=== PATIENT | female | born 1945 | race Caucasian/White ===

== ENCOUNTER 2017-01-08 17:33 | Inpatient (IN) | payer MEDICARE, OTHER ==
[~2017-01-08] VITALS: Ht 162.6 cm; Wt 98.1 kg
[~2017-01-08 17:33] MED LIST: ACET-868 PO; ANAS1TAB8 PO; ASPI-605 PO; CARB-93 PO; CHOL4PAC2 PO; DICL75TA5 PO; DIPH25CA6 PO; DOCU-270 PO; FLUT16SP16 BNOSTRILS; GABA-534 PO; LEVO150T8 PO; MAGN400O6 PO; METO-295 PO; ONDA4TAB5 PO; RISP0.2515 PO; SIME80TA15 PO; SOLI5TAB PO; VALP250C3 PO
[2017-01-08 19:07] LABS: BASOPHILS # (AUTO) 0.1 /CMM (0.0-0.2); DIFF TOTAL % 100 %; EOSINOPHILS # (AUTO) 0.4 /CMM (0.0-0.7); EOSINOPHILS % (AUTO) 5.6 % (0.0-6.0); HEMATOCRIT 32 % (33-45); HEMOGLOBIN 10.4 g/dL (11.5-14.8); LYMPHOCYTES # (AUTO) 1.5 /CMM (0.8-4.8); LYMPHOCYTES % (AUTO) 23.3 % (20.0-44.0); MEAN CORPUSCULAR HEMOGLOBIN 31 PG (26.0-33.0); MEAN CORPUSCULAR HGB CONC 33 g/dl (31.0-36.0); MEAN CORPUSCULAR VOLUME 95 fL (82-100); MONOCYTES # (AUTO) 0.9 /CMM (0.1-1.30); MONOCYTES % (AUTO) 13.3 % (2.0-12.0); NEUTROPHILS # (AUTO) 3.6 /CMM (1.8-8.9); NEUTROPHILS % (AUTO) 56.8 % (43.0-81.0); PLATELET COUNT (AUTO) 254 /CMM (150-450); RED BLOOD CELL COUNT(AUTO) 3.33 MIL/uL (4.0-5.2); WHITE BLOOD COUNT (AUTO) 6.5 K/uL (4.3-11.0)
[2017-01-08 19:32] LABS: CALCIUM, SERUM 9.1 mg/dL (8.5-10.1); CREATININE 1.2 mg/dL (0.6-1.3)
[2017-01-08 19:35] LABS: INR 1.08 (0.87-1.13); PROTHROMBIN TIME 11.3 SECS (9.5-12.7)
[2017-01-08 19:38] LABS: ALBUMIN 3.1 g/dL (3.4-5.0); BILIRUBIN,DIRECT 0.1 mg/dL (0.0-0.2); BILIRUBIN,TOTAL 0.3 mg/dL (0.2-1.0); INDIRECT BILIRUBIN 0.2 mg/dL (0.0-1.1); TOTAL PROTEIN, SERUM 6.6 g/dL (6.4-8.2)
[2017-01-08 20:14] LABS: KETONES,URINE Negative (NEGATIVE); LEUKOCYTE ESTERASE ,URINE Moderate (NEGATIVE)
[2017-01-08 20:15] LABS: ADD UA MICROSCOPIC YES
[2017-01-08 20:26] LABS: ADD URINE CULTURE YES
[2017-01-08] MEDS ORDERED: IV NS 0.9% 500 ML BAG IV ONE (20:30)
[2017-01-08] MEDS ORDERED: PIPERACILLIN /TAZOBACTAM 3.375 G in IV D5W 50 ML IV ONE (20:30)
[2017-01-08] MEDS ORDERED: IV SET PRIMARY PUMP SET 1 EA INFUS.SET MC ONE (20:42)
[2017-01-08] MEDS ORDERED: PIPERACILLIN /TAZOBACTAM 3.375 G VIAL IV ONE (20:42)
[2017-01-08] MEDS ORDERED: IV NS 0.9% 500 ML IV ONE (20:42)
[2017-01-08] MEDS ORDERED: IV D5W 50 ML IV ONE (20:42)
[2017-01-08] MEDS ORDERED: IV SET PRIMARY 1 EA INFUS.SET MC ONE (20:42)
[2017-01-08 21:30] VITALS: BP 132/79
[2017-01-09] MEDS ORDERED: FENO145T20 PO (00:26)
[2017-01-09] MEDS ORDERED: VALS160T2 PO (00:26)
[2017-01-09] MEDS ORDERED: ALBU8.5H2 INH (00:26)
[2017-01-09] MEDS ORDERED: OMEP40CA37 PO (00:26)
[2017-01-09] MEDS ORDERED: ELUX100T PO (00:26)
[2017-01-09] MEDS ORDERED: MULT1TAB73 PO (00:26)
[2017-01-09] MEDS ORDERED: TEMA15CA PO (00:26)
[2017-01-09] MEDS ORDERED: NAPR500T3 PO (00:29)
[2017-01-09] MEDS ORDERED: DICL100G34 TP (00:47)
[2017-01-09] MEDS ORDERED: AMLO5TAB2 PO (00:47)
[2017-01-09] MEDS ORDERED: ONDANSETRON HCL/PF 4 MG/2 ML VIAL IV PRN (01:00)
[2017-01-09] MEDS ORDERED: MORPHINE SULFATE INJ 2 MG/ML DISP.SYRIN IV PRN (01:00)
[2017-01-09] MEDS ORDERED: ENOXAPARIN SODIUM 40 MG/0.4 ML DISP.SYRIN SQ SCH (01:00)
[2017-01-09] MEDS ORDERED: IV D5W 50 ML IV ONE (04:47)
[2017-01-09] MEDS ORDERED: PIPERACILLIN /TAZOBACTAM 3.375 G VIAL IV ONE (04:47)
[2017-01-09] MEDS ORDERED: IV SET PRIMARY PUMP SET 1 EA INFUS.SET MC ONE (04:53)
[2017-01-09] MEDS ORDERED: SECONDARY IV SET 1 EA INFUS.SET MC ONE (04:53)
[2017-01-09] MEDS ORDERED: IV NS 0.9% 250 ML IV ONE (04:53)
[2017-01-09] MEDS ORDERED: PIPERACILLIN /TAZOBACTAM 3.375 G in IV D5W 50 ML IV SCH (05:00)
[2017-01-09 06:48] LABS: ALBUMIN 2.8 g/dL (3.4-5.0); BILIRUBIN,TOTAL 0.2 mg/dL (0.2-1.0); CALCIUM, SERUM 8.6 mg/dL (8.5-10.1); CREATININE 1.2 mg/dL (0.6-1.3); HEMOGLOBIN 9.8 g/dL (11.5-14.8); RED BLOOD CELL COUNT(AUTO) 3.16 MIL/uL (4.0-5.2); TOTAL PROTEIN, SERUM 6.2 g/dL (6.4-8.2); WHITE BLOOD COUNT (AUTO) 6.1 K/uL (4.3-11.0)
[2017-01-09 06:49] LABS: BASOPHILS % (AUTO) 0.2 % (0.0-2.0); DIFF TOTAL % 100 %; EOSINOPHILS # (AUTO) 0.4 /CMM (0.0-0.7); EOSINOPHILS % (AUTO) 6.7 % (0.0-6.0); HEMATOCRIT 30 % (33-45); LYMPHOCYTES # (AUTO) 1.3 /CMM (0.8-4.8); LYMPHOCYTES % (AUTO) 21.3 % (20.0-44.0); MEAN CORPUSCULAR HEMOGLOBIN 31 PG (26.0-33.0); MEAN CORPUSCULAR HGB CONC 33 g/dl (31.0-36.0); MEAN CORPUSCULAR VOLUME 95 fL (82-100); MONOCYTES # (AUTO) 0.8 /CMM (0.1-1.30); MONOCYTES % (AUTO) 12.5 % (2.0-12.0); NEUTROPHILS # (AUTO) 3.6 /CMM (1.8-8.9); NEUTROPHILS % (AUTO) 59.3 % (43.0-81.0); PLATELET COUNT (AUTO) 257 /CMM (150-450)
[2017-01-09 06:50] LABS: THYROID STIMULATING HORMONE 2.372 uIU/mL (0.358-3.74)
[2017-01-09 08:00] VITALS: BP 126/87
[2017-01-09] MEDS: ENOXAPARIN SODIUM 40 MG/0.4 ML DISP.SYRIN SQ SCH (08:55)
[2017-01-09] MEDS: ANASTROZOLE 1 MG TABLET PO SCH (13:00)
[2017-01-09] MEDS ORDERED: ALBUTEROL SULFATE 8 GM HFA.AER.AD IH PRN (13:00)
[2017-01-09] MEDS ORDERED: CHOLESTYRAMINE/ASPARTAME 4 G/PKT PACKET PO SCH (13:00)
[2017-01-09] MEDS ORDERED: ACETAMINOPHEN 325 MG TABLET PO PRN (13:00)
[2017-01-09] MEDS ORDERED: GABAPENTIN 300 MG CAPSULE PO SCH (13:00)
[2017-01-09] MEDS ORDERED: DOCUSATE SODIUM 100 MG CAPSULE PO PRN (13:00)
[2017-01-09] MEDS ORDERED: ONDANSETRON 4 MG TAB.RAPDIS PO PRN (13:00)
[2017-01-09] MEDS: CARBIDOPA/LEVODOPA 25/100 MG 1 UDTAB PO SCH ×2 (13:03→17:15)
[2017-01-09] MEDS: GABAPENTIN 400 MG CAPSULE PO SCH ×2 (13:03→17:15)
[2017-01-09] MEDS: CHOLESTYRAMINE/ASPARTAME 4 G/PKT PACKET PO SCH ×2 (13:03→21:34)
[2017-01-09] MEDS: DIVALPROEX SODIUM 500 MG TABLET.DR PO SCH ×2 (13:03→21:35)
[2017-01-09] MEDS: VALSARTAN 80 MG TABLET PO SCH (13:04)
[2017-01-09] MEDS: AMLODIPINE BESYLATE 5 MG TABLET PO SCH (13:05)
[2017-01-09] MEDS: PIPERACILLIN /TAZOBACTAM 2.25 G in IV D5W 50 ML IV SCH ×2 (13:07→17:14)
[2017-01-09] MEDS: NAPROXEN 250 MG TABLET PO PRN (14:32)
[2017-01-09] MEDS: FLUTICASONE PROPIONATE 16 GM BOTTLE NS SCH (14:56)
[2017-01-09] MEDS ORDERED: GUAIFENESIN/CODEINE 10 ML UDC PO PRN (15:00)
[2017-01-09] MEDS ORDERED: TRAMADOL HCL 50 MG TABLET PO PRN (15:00)
[2017-01-09] MEDS ORDERED: HYDROCODONE/APAP 5/325MG 1 EACH TABLET PO PRN (15:00)
[2017-01-09 16:00] VITALS: BP 132/84
[2017-01-09] MEDS ORDERED: VALTAREN GEL TP SCH (17:00)
[2017-01-09] MEDS ORDERED: DICLOFENAC SODIUM 25 MG TABLET.DR PO SCH (17:00)
[2017-01-09] MEDS: LACTOBACILLUS RHAMNOSUS GG 1 EACH CAP.SPRINK PO SCH (17:15)
[2017-01-09 18:00] VITALS: BP 132/84
[2017-01-09 20:00] VITALS: BP 121/70
[2017-01-09] MEDS ORDERED: TEMAZEPAM 15 MG CAPSULE PO PRN (21:00)
[2017-01-09] MEDS ORDERED: risperiDONE 0.25 MG TABLET PO SCH (22:00)
[2017-01-10 00:03] VITALS: BP 121/70
[2017-01-10] MEDS: PIPERACILLIN /TAZOBACTAM 2.25 G in IV D5W 50 ML IV SCH ×5 (00:17→23:15)
[2017-01-10] MEDS: CHOLESTYRAMINE/ASPARTAME 4 G/PKT PACKET PO SCH ×3 (05:00→21:13)
[2017-01-10 06:58] LABS: BASOPHILS % (AUTO) 0.4 % (0.0-2.0); DIFF TOTAL % 100 %; EOSINOPHILS # (AUTO) 0.5 /CMM (0.0-0.7); HEMATOCRIT 30 % (33-45); HEMOGLOBIN 9.9 g/dL (11.5-14.8); LYMPHOCYTES # (AUTO) 1.6 /CMM (0.8-4.8); LYMPHOCYTES % (AUTO) 32.1 % (20.0-44.0); MEAN CORPUSCULAR HEMOGLOBIN 32 PG (26.0-33.0); MEAN CORPUSCULAR HGB CONC 33 g/dl (31.0-36.0); MEAN CORPUSCULAR VOLUME 95 fL (82-100); MONOCYTES # (AUTO) 0.8 /CMM (0.1-1.30); MONOCYTES % (AUTO) 17.2 % (2.0-12.0); NEUTROPHILS % (AUTO) 40.3 % (43.0-81.0); PLATELET COUNT (AUTO) 248 /CMM (150-450); RED BLOOD CELL COUNT(AUTO) 3.15 MIL/uL (4.0-5.2); WHITE BLOOD COUNT (AUTO) 4.9 K/uL (4.3-11.0)
[2017-01-10 07:16] LABS: CALCIUM, SERUM 8.4 mg/dL (8.5-10.1); CREATININE 1.2 mg/dL (0.6-1.3)
[2017-01-10 08:00] VITALS: BP 136/77
[2017-01-10] MEDS: LACTOBACILLUS RHAMNOSUS GG 1 EACH CAP.SPRINK PO SCH ×2 (08:35→16:52)
[2017-01-10] MEDS: LEVOTHYROXINE SODIUM 75 MCG TABLET PO SCH (08:35)
[2017-01-10] MEDS: CARBIDOPA/LEVODOPA 25/100 MG 1 UDTAB PO SCH ×3 (08:35→16:52)
[2017-01-10] MEDS: PANTOPRAZOLE 40 MG TABLET.DR PO SCH (08:35)
[2017-01-10] MEDS: MULTIVITAMINS,THERAPEUTIC 1 UDTAB TABLET PO SCH (08:35)
[2017-01-10] MEDS: GABAPENTIN 400 MG CAPSULE PO SCH ×3 (08:35→16:52)
[2017-01-10] MEDS: DIVALPROEX SODIUM 500 MG TABLET.DR PO SCH ×2 (08:35→21:13)
[2017-01-10] MEDS: VALSARTAN 80 MG TABLET PO SCH (08:36)
[2017-01-10] MEDS: AMLODIPINE BESYLATE 5 MG TABLET PO SCH (08:36)
[2017-01-10] MEDS: ANASTROZOLE 1 MG TABLET PO SCH (08:36)
[2017-01-10] MEDS: ENOXAPARIN SODIUM 40 MG/0.4 ML DISP.SYRIN SQ SCH (08:37)
[2017-01-10] MEDS: FLUTICASONE PROPIONATE 16 GM BOTTLE NS SCH (08:37)
[2017-01-10] MEDS: FENOFIBRATE NANOCRYS (145 MG) 145 MG TABLET PO SCH (08:37)
[2017-01-10] MEDS ORDERED: ALBUTEROL FS 2.5 MG/0.5 ML VIAL.NEB NEB PRN (09:30)
[2017-01-10 09:31] LABS: EOSINOPHILS % (MANUAL) 3 % (0-4); LYMPHOCYTES % (MANUAL) 32 % (16-48)
[2017-01-10 09:32] LABS: PLATELET ESTIMATE ADEQUATE
[2017-01-10] MEDS: ALBUTEROL FS 2.5 MG/0.5 ML VIAL.NEB NEB SCH ×3 (10:25→20:46)
[2017-01-10] MEDS: IPRATROPIUM NEB FS 0.5 MG/2.5 ML AMPUL.NEB NEB SCH ×3 (10:25→20:46)
[2017-01-10] MEDS: BACLOFEN (10 MG) 10 MG TABLET PO SCH ×3 (10:28→16:52)
[2017-01-10 16:00] VITALS: BP 109/74
[2017-01-10 18:00] VITALS: BP 109/74
[2017-01-10 20:00] VITALS: BP 109/69
[2017-01-10] MEDS: risperiDONE 1 MG TABLET PO SCH (21:13)
[2017-01-11] MEDS: IPRATROPIUM NEB FS 0.5 MG/2.5 ML AMPUL.NEB NEB PRN (02:22)
[2017-01-11] MEDS: ALBUTEROL FS 2.5 MG/0.5 ML VIAL.NEB NEB SCH ×4 (02:23→19:30)
[2017-01-11] MEDS: PIPERACILLIN /TAZOBACTAM 2.25 G in IV D5W 50 ML IV SCH (05:22)
[2017-01-11] MEDS: CHOLESTYRAMINE/ASPARTAME 4 G/PKT PACKET PO SCH ×3 (05:22→21:29)
[2017-01-11] MEDS: IPRATROPIUM NEB FS 0.5 MG/2.5 ML AMPUL.NEB NEB SCH ×3 (07:22→19:30)
[2017-01-11 08:00] VITALS: BP 125/88
[2017-01-11] MEDS: FLUTICASONE PROPIONATE 16 GM BOTTLE NS SCH (08:05)
[2017-01-11] MEDS: BACLOFEN (10 MG) 10 MG TABLET PO SCH ×3 (08:05→17:10)
[2017-01-11] MEDS: LEVOTHYROXINE SODIUM 75 MCG TABLET PO SCH (08:05)
[2017-01-11] MEDS: ANASTROZOLE 1 MG TABLET PO SCH (08:05)
[2017-01-11] MEDS: LACTOBACILLUS RHAMNOSUS GG 1 EACH CAP.SPRINK PO SCH ×2 (08:06→17:10)
[2017-01-11] MEDS: VALSARTAN 80 MG TABLET PO SCH (08:07)
[2017-01-11] MEDS: MULTIVITAMINS,THERAPEUTIC 1 UDTAB TABLET PO SCH (08:07)
[2017-01-11] MEDS: FENOFIBRATE NANOCRYS (145 MG) 145 MG TABLET PO SCH (08:07)
[2017-01-11] MEDS: GABAPENTIN 400 MG CAPSULE PO SCH ×3 (08:07→17:10)
[2017-01-11] MEDS: PANTOPRAZOLE 40 MG TABLET.DR PO SCH (08:08)
[2017-01-11] MEDS: AMLODIPINE BESYLATE 5 MG TABLET PO SCH (08:08)
[2017-01-11] MEDS: CARBIDOPA/LEVODOPA 25/100 MG 1 UDTAB PO SCH ×3 (08:08→17:10)
[2017-01-11] MEDS: DIVALPROEX SODIUM 500 MG TABLET.DR PO SCH ×2 (08:08→21:29)
[2017-01-11] MEDS: ENOXAPARIN SODIUM 40 MG/0.4 ML DISP.SYRIN SQ SCH (08:12)
[2017-01-11] MEDS ORDERED: TOBRAMYCIN 80 MG in IV D5W 50 ML IV SCH (10:00)
[2017-01-11] MEDS: FLUCONAZOLE (100 MG) 100 MG TABLET PO SCH (11:22)
[2017-01-11] MEDS ORDERED: FEE PK DOSING 1 MIN EA MC ONE (11:39)
[2017-01-11] MEDS ORDERED: SECONDARY IV SET 1 EA INFUS.SET MC ONE (11:40)
[2017-01-11] MEDS: TOBRAMYCIN 100 MG in IV D5W 50 ML IV SCH (11:51)
[2017-01-11 16:00] VITALS: BP 109/67
[2017-01-11 20:00] VITALS: BP 112/68
[2017-01-11] MEDS: risperiDONE 1 MG TABLET PO SCH (21:29)
[2017-01-12] MEDS: ALBUTEROL FS 2.5 MG/0.5 ML VIAL.NEB NEB SCH ×4 (01:20→19:13)
[2017-01-12] MEDS: CHOLESTYRAMINE/ASPARTAME 4 G/PKT PACKET PO SCH ×3 (04:57→21:27)
[2017-01-12 07:08] LABS: BASOPHILS % (AUTO) 0.4 % (0.0-2.0); DIFF TOTAL % 100 %; EOSINOPHILS # (AUTO) 0.3 /CMM (0.0-0.7); EOSINOPHILS % (AUTO) 6.2 % (0.0-6.0); HEMATOCRIT 32 % (33-45); HEMOGLOBIN 10.7 g/dL (11.5-14.8); LYMPHOCYTES # (AUTO) 1.3 /CMM (0.8-4.8); LYMPHOCYTES % (AUTO) 26.8 % (20.0-44.0); MEAN CORPUSCULAR HEMOGLOBIN 31 PG (26.0-33.0); MEAN CORPUSCULAR HGB CONC 33 g/dl (31.0-36.0); MEAN CORPUSCULAR VOLUME 95 fL (82-100); MONOCYTES # (AUTO) 0.7 /CMM (0.1-1.30); MONOCYTES % (AUTO) 14.8 % (2.0-12.0); NEUTROPHILS # (AUTO) 2.6 /CMM (1.8-8.9); NEUTROPHILS % (AUTO) 51.8 % (43.0-81.0); PLATELET COUNT (AUTO) 258 /CMM (150-450); RED BLOOD CELL COUNT(AUTO) 3.43 MIL/uL (4.0-5.2); WHITE BLOOD COUNT (AUTO) 4.9 K/uL (4.3-11.0)
[2017-01-12] MEDS: IPRATROPIUM NEB FS 0.5 MG/2.5 ML AMPUL.NEB NEB SCH ×3 (07:34→19:13)
[2017-01-12 07:53] LABS: CALCIUM, SERUM 8.8 mg/dL (8.5-10.1); CREATININE 1.2 mg/dL (0.6-1.3); PHOSPHORUS 3.9 mg/dL (2.5-4.9); POTASSIUM 4.5 mmol/L (3.5-5.1)
[2017-01-12 08:00] VITALS: BP 137/72
[2017-01-12] MEDS: FENOFIBRATE NANOCRYS (145 MG) 145 MG TABLET PO SCH (08:05)
[2017-01-12] MEDS: BACLOFEN (10 MG) 10 MG TABLET PO SCH ×3 (08:05→17:10)
[2017-01-12] MEDS: LACTOBACILLUS RHAMNOSUS GG 1 EACH CAP.SPRINK PO SCH ×2 (08:05→17:10)
[2017-01-12] MEDS: MULTIVITAMINS,THERAPEUTIC 1 UDTAB TABLET PO SCH (08:05)
[2017-01-12] MEDS: LEVOTHYROXINE SODIUM 75 MCG TABLET PO SCH (08:06)
[2017-01-12] MEDS: DIVALPROEX SODIUM 500 MG TABLET.DR PO SCH ×2 (08:08→21:27)
[2017-01-12] MEDS: PANTOPRAZOLE 40 MG TABLET.DR PO SCH (08:08)
[2017-01-12] MEDS: VALSARTAN 80 MG TABLET PO SCH (08:09)
[2017-01-12] MEDS: FLUCONAZOLE (100 MG) 100 MG TABLET PO SCH (08:09)
[2017-01-12] MEDS: AMLODIPINE BESYLATE 5 MG TABLET PO SCH (08:09)
[2017-01-12] MEDS: CARBIDOPA/LEVODOPA 25/100 MG 1 UDTAB PO SCH ×4 (08:09→21:27)
[2017-01-12] MEDS: ANASTROZOLE 1 MG TABLET PO SCH (08:10)
[2017-01-12] MEDS: FLUTICASONE PROPIONATE 16 GM BOTTLE NS SCH (08:13)
[2017-01-12] MEDS: GABAPENTIN 400 MG CAPSULE PO SCH ×3 (08:14→17:10)
[2017-01-12] MEDS: ENOXAPARIN SODIUM 40 MG/0.4 ML DISP.SYRIN SQ SCH (08:18)
[2017-01-12] MEDS: TOBRAMYCIN 100 MG in IV D5W 50 ML IV SCH (12:34)
[2017-01-12] MEDS: Z GUARD REMEDY 2 OZ OINT TP SCH (12:34)
[2017-01-12] MEDS ORDERED: SECONDARY IV SET 1 EA INFUS.SET MC ONE (14:58)
[2017-01-12] MEDS: Magnesium 1GM/D5W 100ML PREMIX 100 ML IV SCH ×2 (15:36→17:04)
[2017-01-12 16:00] VITALS: BP 108/60
[2017-01-12 20:28] VITALS: BP 125/67
[2017-01-12] MEDS: risperiDONE 1 MG TABLET PO SCH (21:27)
[2017-01-13] MEDS: ALBUTEROL FS 2.5 MG/0.5 ML VIAL.NEB NEB SCH ×4 (01:04→19:52)
[2017-01-13] MEDS: CHOLESTYRAMINE/ASPARTAME 4 G/PKT PACKET PO SCH ×3 (05:27→21:46)
[2017-01-13 06:53] LABS: BASOPHILS % (AUTO) 0.3 % (0.0-2.0); DIFF TOTAL % 100 %; EOSINOPHILS # (AUTO) 0.2 /CMM (0.0-0.7); EOSINOPHILS % (AUTO) 3.9 % (0.0-6.0); HEMATOCRIT 33 % (33-45); LYMPHOCYTES # (AUTO) 1.6 /CMM (0.8-4.8); LYMPHOCYTES % (AUTO) 26.3 % (20.0-44.0); MEAN CORPUSCULAR HEMOGLOBIN 31 PG (26.0-33.0); MEAN CORPUSCULAR HGB CONC 33 g/dl (31.0-36.0); MEAN CORPUSCULAR VOLUME 94 fL (82-100); MONOCYTES # (AUTO) 0.8 /CMM (0.1-1.30); NEUTROPHILS # (AUTO) 3.4 /CMM (1.8-8.9); NEUTROPHILS % (AUTO) 55.5 % (43.0-81.0); PLATELET COUNT (AUTO) 267 /CMM (150-450); WHITE BLOOD COUNT (AUTO) 6.1 K/uL (4.3-11.0)
[2017-01-13 07:15] LABS: CREATININE 1.4 mg/dL (0.6-1.3); PHOSPHORUS 4.8 mg/dL (2.5-4.9); POTASSIUM 5.2 mmol/L (3.5-5.1)
[2017-01-13 08:00] VITALS: BP 131/79
[2017-01-13] MEDS: IPRATROPIUM NEB FS 0.5 MG/2.5 ML AMPUL.NEB NEB SCH ×3 (08:22→19:52)
[2017-01-13] MEDS: FLUCONAZOLE (100 MG) 100 MG TABLET PO SCH (09:31)
[2017-01-13] MEDS: PANTOPRAZOLE 40 MG TABLET.DR PO SCH (09:33)
[2017-01-13] MEDS: LEVOTHYROXINE SODIUM 75 MCG TABLET PO SCH (09:33)
[2017-01-13] MEDS: LACTOBACILLUS RHAMNOSUS GG 1 EACH CAP.SPRINK PO SCH ×2 (09:34→17:19)
[2017-01-13] MEDS: GABAPENTIN 400 MG CAPSULE PO SCH ×3 (09:34→17:18)
[2017-01-13] MEDS: MULTIVITAMINS,THERAPEUTIC 1 UDTAB TABLET PO SCH (09:34)
[2017-01-13] MEDS: BACLOFEN (10 MG) 10 MG TABLET PO SCH ×3 (09:34→17:18)
[2017-01-13] MEDS: FENOFIBRATE NANOCRYS (145 MG) 145 MG TABLET PO SCH (09:34)
[2017-01-13] MEDS: DIVALPROEX SODIUM 500 MG TABLET.DR PO SCH ×2 (09:35→21:47)
[2017-01-13] MEDS: AMLODIPINE BESYLATE 5 MG TABLET PO SCH (09:35)
[2017-01-13] MEDS: CARBIDOPA/LEVODOPA 25/100 MG 1 UDTAB PO SCH ×4 (09:38→21:46)
[2017-01-13] MEDS: FLUTICASONE PROPIONATE 16 GM BOTTLE NS SCH (09:38)
[2017-01-13] MEDS: VALSARTAN 80 MG TABLET PO SCH (09:38)
[2017-01-13] MEDS: ANASTROZOLE 1 MG TABLET PO SCH (09:38)
[2017-01-13] MEDS: ENOXAPARIN SODIUM 40 MG/0.4 ML DISP.SYRIN SQ SCH (09:41)
[2017-01-13] MEDS: Z GUARD REMEDY 2 OZ OINT TP SCH (09:45)
[2017-01-13] MEDS: TOBRAMYCIN 100 MG in IV D5W 50 ML IV SCH (12:14)
[2017-01-13 16:00] VITALS: BP 139/63
[2017-01-13] MEDS ORDERED: IV NS 0.9% 50 ML IV SCH (19:00)
[2017-01-13 20:00] VITALS: BP 131/70
[2017-01-13] MEDS ORDERED: SECONDARY IV SET 1 EA INFUS.SET MC ONE (20:28)
[2017-01-13] MEDS ORDERED: IV NS 0.9% 1,000 ML ONE (20:29)
[2017-01-13] MEDS: CEFEPIME 1 GM in IV D5W 50 ML IV SCH (20:32)
[2017-01-13] MEDS: IV NS 0.9% 1,000 ML IV PRN (20:32)
[2017-01-13 22:00] VITALS: BP 131/70
[2017-01-14] MEDS: CHOLESTYRAMINE/ASPARTAME 4 G/PKT PACKET PO SCH ×4 (05:02→21:55)
[2017-01-14 07:22] LABS: CALCIUM, SERUM 9.2 mg/dL (8.5-10.1); CREATININE 1.3 mg/dL (0.6-1.3)
[2017-01-14 07:32] LABS: BASOPHILS % (AUTO) 0.3 % (0.0-2.0); DIFF TOTAL % 100 %; EOSINOPHILS # (AUTO) 0.3 /CMM (0.0-0.7); EOSINOPHILS % (AUTO) 4.7 % (0.0-6.0); HEMATOCRIT 34 % (33-45); LYMPHOCYTES # (AUTO) 1.3 /CMM (0.8-4.8); LYMPHOCYTES % (AUTO) 22.3 % (20.0-44.0); MEAN CORPUSCULAR HEMOGLOBIN 31 PG (26.0-33.0); MEAN CORPUSCULAR HGB CONC 33 g/dl (31.0-36.0); MEAN CORPUSCULAR VOLUME 95 fL (82-100); MONOCYTES # (AUTO) 0.8 /CMM (0.1-1.30); MONOCYTES % (AUTO) 12.7 % (2.0-12.0); NEUTROPHILS # (AUTO) 3.6 /CMM (1.8-8.9); PLATELET COUNT (AUTO) 255 /CMM (150-450); RED BLOOD CELL COUNT(AUTO) 3.53 MIL/uL (4.0-5.2)
[2017-01-14] MEDS: ALBUTEROL FS 2.5 MG/0.5 ML VIAL.NEB NEB SCH ×3 (07:50→19:30)
[2017-01-14] MEDS: IPRATROPIUM NEB FS 0.5 MG/2.5 ML AMPUL.NEB NEB SCH ×3 (07:50→19:30)
[2017-01-14 07:55] LABS: ADD UA MICROSCOPIC NO; KETONES,URINE NEGATIVE (NEGATIVE); LEUKOCYTE ESTERASE ,URINE NEGATIVE (NEGATIVE)
[2017-01-14 08:00] VITALS: BP 139/82
[2017-01-14] MEDS: FENOFIBRATE NANOCRYS (145 MG) 145 MG TABLET PO SCH (08:57)
[2017-01-14] MEDS: PANTOPRAZOLE 40 MG TABLET.DR PO SCH (08:58)
[2017-01-14] MEDS: MULTIVITAMINS,THERAPEUTIC 1 UDTAB TABLET PO SCH (08:58)
[2017-01-14] MEDS: LEVOTHYROXINE SODIUM 75 MCG TABLET PO SCH (08:58)
[2017-01-14] MEDS: LACTOBACILLUS RHAMNOSUS GG 1 EACH CAP.SPRINK PO SCH ×2 (08:58→17:07)
[2017-01-14] MEDS: GABAPENTIN 400 MG CAPSULE PO SCH ×3 (08:58→17:07)
[2017-01-14] MEDS: DIVALPROEX SODIUM 500 MG TABLET.DR PO SCH ×3 (08:59→21:55)
[2017-01-14] MEDS: AMLODIPINE BESYLATE 5 MG TABLET PO SCH (08:59)
[2017-01-14] MEDS: NAPROXEN 250 MG TABLET PO PRN (08:59)
[2017-01-14] MEDS: ANASTROZOLE 1 MG TABLET PO SCH (08:59)
[2017-01-14] MEDS: FLUCONAZOLE (100 MG) 100 MG TABLET PO SCH (09:00)
[2017-01-14] MEDS: CARBIDOPA/LEVODOPA 25/100 MG 1 UDTAB PO SCH ×5 (09:00→21:55)
[2017-01-14] MEDS: BACLOFEN (10 MG) 10 MG TABLET PO SCH ×3 (09:00→17:07)
[2017-01-14] MEDS: VALSARTAN 80 MG TABLET PO SCH (09:00)
[2017-01-14] MEDS: FLUTICASONE PROPIONATE 16 GM BOTTLE NS SCH (09:01)
[2017-01-14] MEDS: Z GUARD REMEDY 2 OZ OINT TP SCH (09:01)
[2017-01-14] MEDS: ENOXAPARIN SODIUM 40 MG/0.4 ML DISP.SYRIN SQ SCH (09:02)
[2017-01-14] MEDS: TOBRAMYCIN 100 MG in IV D5W 50 ML IV SCH (12:14)
[2017-01-14] MEDS: IV NS 0.9% 1,000 ML IV PRN (12:27)
[2017-01-14 16:00] VITALS: BP 108/69
[2017-01-14 20:09] VITALS: BP 107/66
[2017-01-14] MEDS: CEFEPIME 1 GM in IV D5W 50 ML IV SCH (20:15)
[2017-01-14 22:00] VITALS: BP 107/66
[2017-01-15] MEDS: ALBUTEROL FS 2.5 MG/0.5 ML VIAL.NEB NEB SCH ×4 (02:16→20:12)
[2017-01-15] MEDS: IPRATROPIUM NEB FS 0.5 MG/2.5 ML AMPUL.NEB NEB PRN (02:25)
[2017-01-15] MEDS: IV NS 0.9% 1,000 ML IV PRN (04:01)
[2017-01-15] MEDS: CHOLESTYRAMINE/ASPARTAME 4 G/PKT PACKET PO SCH ×3 (04:31→22:15)
[2017-01-15 06:44] LABS: CALCIUM, SERUM 9.2 mg/dL (8.5-10.1); CREATININE 1.4 mg/dL (0.6-1.3); POTASSIUM 4.9 mmol/L (3.5-5.1)
[2017-01-15 06:45] LABS: BASOPHILS % (AUTO) 0.3 % (0.0-2.0); DIFF TOTAL % 100 %; EOSINOPHILS # (AUTO) 0.4 /CMM (0.0-0.7); EOSINOPHILS % (AUTO) 6.3 % (0.0-6.0); HEMATOCRIT 33 % (33-45); HEMOGLOBIN 10.8 g/dL (11.5-14.8); LYMPHOCYTES # (AUTO) 1.4 /CMM (0.8-4.8); LYMPHOCYTES % (AUTO) 23.7 % (20.0-44.0); MEAN CORPUSCULAR HEMOGLOBIN 31 PG (26.0-33.0); MEAN CORPUSCULAR HGB CONC 33 g/dl (31.0-36.0); MEAN CORPUSCULAR VOLUME 96 fL (82-100); MONOCYTES # (AUTO) 0.7 /CMM (0.1-1.30); MONOCYTES % (AUTO) 11.2 % (2.0-12.0); NEUTROPHILS # (AUTO) 3.5 /CMM (1.8-8.9); NEUTROPHILS % (AUTO) 58.5 % (43.0-81.0); PLATELET COUNT (AUTO) 234 /CMM (150-450); RED BLOOD CELL COUNT(AUTO) 3.45 MIL/uL (4.0-5.2)
[2017-01-15 08:00] VITALS: BP 136/72
[2017-01-15] MEDS: VALSARTAN 80 MG TABLET PO SCH (08:29)
[2017-01-15] MEDS: ANASTROZOLE 1 MG TABLET PO SCH (08:29)
[2017-01-15] MEDS: LEVOTHYROXINE SODIUM 75 MCG TABLET PO SCH (08:29)
[2017-01-15] MEDS: BACLOFEN (10 MG) 10 MG TABLET PO SCH ×3 (08:29→16:11)
[2017-01-15] MEDS: MULTIVITAMINS,THERAPEUTIC 1 UDTAB TABLET PO SCH (08:29)
[2017-01-15] MEDS: FLUCONAZOLE (100 MG) 100 MG TABLET PO SCH (08:29)
[2017-01-15] MEDS: PANTOPRAZOLE 40 MG TABLET.DR PO SCH (08:29)
[2017-01-15] MEDS: FENOFIBRATE NANOCRYS (145 MG) 145 MG TABLET PO SCH (08:29)
[2017-01-15] MEDS: GABAPENTIN 400 MG CAPSULE PO SCH ×3 (08:29→16:11)
[2017-01-15] MEDS: LACTOBACILLUS RHAMNOSUS GG 1 EACH CAP.SPRINK PO SCH ×2 (08:29→16:11)
[2017-01-15] MEDS: AMLODIPINE BESYLATE 5 MG TABLET PO SCH (08:30)
[2017-01-15] MEDS: ENOXAPARIN SODIUM 40 MG/0.4 ML DISP.SYRIN SQ SCH (08:30)
[2017-01-15] MEDS: DIVALPROEX SODIUM 500 MG TABLET.DR PO SCH ×2 (08:31→20:59)
[2017-01-15] MEDS: Z GUARD REMEDY 2 OZ OINT TP SCH (08:32)
[2017-01-15] MEDS: CARBIDOPA/LEVODOPA 25/100 MG 1 UDTAB PO SCH ×4 (08:32→20:59)
[2017-01-15] MEDS: FLUTICASONE PROPIONATE 16 GM BOTTLE NS SCH (08:33)
[2017-01-15] MEDS: IPRATROPIUM NEB FS 0.5 MG/2.5 ML AMPUL.NEB NEB SCH ×3 (09:06→20:12)
[2017-01-15] MEDS ORDERED: LORAZEPAM INJ 2 MG/ML VIAL IV ONE (10:30)
[2017-01-15] MEDS: risperiDONE 1 MG TABLET PO SCH ×2 (10:33→16:11)
[2017-01-15] MEDS: TOBRAMYCIN 100 MG in IV D5W 50 ML IV SCH (13:26)
[2017-01-15 16:00] VITALS: BP 105/60
[2017-01-15 20:00] VITALS: BP 119/74
[2017-01-15] MEDS: CEFEPIME 1 GM in IV D5W 50 ML IV SCH (20:59)
[2017-01-15 21:23] LABS: PHOSPHORUS 5.2 mg/dL (2.5-4.9)
[2017-01-16] MEDS: ALBUTEROL FS 2.5 MG/0.5 ML VIAL.NEB NEB SCH ×4 (01:30→20:10)
[2017-01-16] MEDS: CHOLESTYRAMINE/ASPARTAME 4 G/PKT PACKET PO SCH ×3 (05:59→22:17)
[2017-01-16 06:51] LABS: CREATININE 1.4 mg/dL (0.6-1.3); POTASSIUM 5.6 mmol/L (3.5-5.1)
[2017-01-16 08:00] VITALS: BP 107/57
[2017-01-16] MEDS: IPRATROPIUM NEB FS 0.5 MG/2.5 ML AMPUL.NEB NEB SCH ×3 (08:10→20:09)
[2017-01-16] MEDS: MULTIVITAMINS,THERAPEUTIC 1 UDTAB TABLET PO SCH (08:32)
[2017-01-16] MEDS: LEVOTHYROXINE SODIUM 75 MCG TABLET PO SCH (08:33)
[2017-01-16] MEDS: BACLOFEN (10 MG) 10 MG TABLET PO SCH ×3 (08:33→16:38)
[2017-01-16] MEDS: DIVALPROEX SODIUM 500 MG TABLET.DR PO SCH ×2 (08:33→21:22)
[2017-01-16] MEDS: LACTOBACILLUS RHAMNOSUS GG 1 EACH CAP.SPRINK PO SCH ×2 (08:34→16:38)
[2017-01-16] MEDS: risperiDONE 1 MG TABLET PO SCH ×2 (08:34→16:38)
[2017-01-16] MEDS: FENOFIBRATE NANOCRYS (145 MG) 145 MG TABLET PO SCH (08:35)
[2017-01-16] MEDS: CARBIDOPA/LEVODOPA 25/100 MG 1 UDTAB PO SCH ×4 (08:36→21:22)
[2017-01-16] MEDS: GABAPENTIN 400 MG CAPSULE PO SCH ×3 (08:36→16:42)
[2017-01-16] MEDS: FLUCONAZOLE (100 MG) 100 MG TABLET PO SCH (08:36)
[2017-01-16] MEDS: ANASTROZOLE 1 MG TABLET PO SCH (08:36)
[2017-01-16] MEDS: PANTOPRAZOLE 40 MG TABLET.DR PO SCH (08:36)
[2017-01-16] MEDS: VALSARTAN 80 MG TABLET PO SCH (08:36)
[2017-01-16] MEDS: ENOXAPARIN SODIUM 40 MG/0.4 ML DISP.SYRIN SQ SCH (08:38)
[2017-01-16] MEDS: FLUTICASONE PROPIONATE 16 GM BOTTLE NS SCH (08:46)
[2017-01-16] MEDS: Z GUARD REMEDY 2 OZ OINT TP SCH (08:47)
[2017-01-16] MEDS: AMLODIPINE BESYLATE 5 MG TABLET PO SCH (09:43)
[2017-01-16] MEDS ORDERED: SODIUM POLYSTYRENE SULFONATE 15 G/60 ML BOTTLE PO ONE (11:00)
[2017-01-16] MEDS ORDERED: IV NS 0.9% 100 ML IV PRN (11:00)
[2017-01-16] MEDS: TOBRAMYCIN 100 MG in IV D5W 50 ML IV SCH (11:35)
[2017-01-16] MEDS ORDERED: IV SET PRIMARY PUMP SET 1 EA INFUS.SET MC ONE (14:27)
[2017-01-16] MEDS ORDERED: IV NS 0.9% 1,000 ML BAG IV PRN (15:00)
[2017-01-16] MEDS ORDERED: IV NS 0.9% 1,000 ML IV PRN (15:00)
[2017-01-16 15:41] VITALS: BP 99/66
[2017-01-16 16:00] VITALS: BP 99/66
[2017-01-16 20:00] VITALS: BP 130/68
[2017-01-16] MEDS: CEFEPIME 1 GM in IV D5W 50 ML IV SCH (21:51)
[2017-01-17] MEDS ORDERED: ALBU2.5V13 NEB (01:17)
[2017-01-17] MEDS ORDERED: BACL10TA PO (01:19)
[2017-01-17] MEDS ORDERED: DIVA500T2 PO (01:22)
[2017-01-17] MEDS ORDERED: ENOX40DI SQ (01:25)
[2017-01-17] MEDS ORDERED: FLUC100T8 PO (01:27)
[2017-01-17] MEDS ORDERED: IPRA0.2S9 NEB (01:32)
[2017-01-17] MEDS ORDERED: LACT1CAP72 PO (01:34)
[2017-01-17] MEDS ORDERED: PANT40TA4 PO (01:35)
[2017-01-17] MEDS ORDERED: TRAM50TA2 PO (01:38)
[2017-01-17] MEDS ORDERED: VALS80TA2 PO (11:05)
[2017-01-17] MEDS ORDERED: ALBU2.5V13 IH (11:05)
[2017-01-17] MEDS ORDERED: HYDR-3326 PO (11:05)
[2017-01-17] MEDS ORDERED: MULT-24 PO (11:05)
[2017-01-17] MEDS ORDERED: ALLA266C2 TP (11:05)
[2017-01-17] MEDS ORDERED: GUAI10SY3 PO (11:05)
[2017-01-17] MEDS ORDERED: IPRA0.2S9 IH (11:05)
== END 2017-01-17 00:15 | DRG 689 ==
LOC: ER 17:36 → MEDSG2 20:47 → UNDODISIN 01-16 12:00
PROVIDERS: ADMIT Internal Medicine; ATTEND Internal Medicine
DX: N39.0 Urinary tract infection, site not specified (principal); G93.40 Encephalopathy, unspecified; N17.9 Acute kidney failure, unspecified; I50.32 Chronic diastolic (congestive) heart failure; E87.0 Hyperosmolality and hypernatremia; D64.9 Anemia, unspecified; E03.9 Hypothyroidism, unspecified; E66.01 Morbid (severe) obesity due to excess calories; E78.5 Hyperlipidemia, unspecified; Z90.710 Acquired absence of both cervix and uterus; Z85.3 Personal history of malignant neoplasm of breast; J44.9 Chronic obstructive pulmonary disease, unspecified; G20 Parkinson's disease; M54.5 Low back pain; Z92.3 Personal history of irradiation; F31.9 Bipolar disorder, unspecified; F29 Unspecified psychosis not due to a substance or known physiological condition; Z86.19 Personal history of other infectious and parasitic diseases; Z87.891 Personal history of nicotine dependence; B96.20 Unspecified Escherichia coli [E. coli] as the cause of diseases classified elsewhere; E87.5 Hyperkalemia; E86.0 Dehydration; J06.9 Acute upper respiratory infection, unspecified; I10 Essential (primary) hypertension; M19.90 Unspecified osteoarthritis, unspecified site; K76.0 Fatty (change of) liver, not elsewhere classified; D32.9 Benign neoplasm of meninges, unspecified; Z86.73 Personal history of transient ischemic attack (TIA), and cerebral infarction without residual deficits; Z87.440 Personal history of urinary (tract) infections; Z90.12 Acquired absence of left breast and nipple
CPT/HCPCS: 36415; 70551-TC; 71010-TC; 73060-TC; 73564-TC; 80048-TC; 80053-TC; 80061-TC; 80076-TC; 80170-TC; 81000-TC; 82272-TC; 82962-TC; 83540-TC; 83690-TC; 83735-TC; 84100-TC; 84443-TC; 85025-TC; 85730-TC; 87040-TC; 87081-TC; 87086-TC; 87186-TC; 94799-TC; 97001-TC; 97110-TC; 97530-TC; A4216; A4606; J0692; J1650; J2060; J2405; J2543; J3260; J3475; J7030; J7040; J7050; J7060; Z7610

== ENCOUNTER 2017-01-17 01:04 | Inpatient (IN) | payer MEDICARE, OTHER ==
[~2017-01-17] VITALS: Ht 162.6 cm; Wt 98.4 kg
[~2017-01-17 01:04] MED LIST changes: +ALBU8.5H2 INH; +AMLO5TAB2 PO; -ASPI-605 PO; +DICL100G34 TP; -DICL75TA5 PO; -DIPH25CA6 PO; +ELUX100T PO; +FENO145T20 PO; -MAGN400O6 PO; -METO-295 PO; +MULT1TAB73 PO; +NAPR500T3 PO; +OMEP40CA37 PO; -ONDA4TAB5 PO; -SIME80TA15 PO; -SOLI5TAB PO; +TEMA15CA PO; +VALS160T2 PO
[2017-01-17] MEDS ORDERED: ALBU2.5V13 NEB (01:17)
[2017-01-17] MEDS ORDERED: BACL10TA PO (01:19)
[2017-01-17] MEDS ORDERED: DIVA500T2 PO (01:22)
[2017-01-17] MEDS ORDERED: ENOX40DI SQ (01:25)
[2017-01-17] MEDS ORDERED: FLUC100T8 PO (01:27)
[2017-01-17] MEDS ORDERED: IPRA0.2S9 NEB (01:32)
[2017-01-17] MEDS ORDERED: LACT1CAP72 PO (01:34)
[2017-01-17] MEDS ORDERED: PANT40TA4 PO (01:35)
[2017-01-17] MEDS ORDERED: TRAM50TA2 PO (01:38)
[2017-01-17 02:00] VITALS: BP 120/68
[2017-01-17] MEDS ORDERED: ALBUTEROL FS 2.5 MG/3 ML VIAL.NEB NEB PRN (02:00)
[2017-01-17] MEDS ORDERED: DOCUSATE SODIUM 100 MG CAPSULE PO PRN (02:00)
[2017-01-17] MEDS ORDERED: NAPROXEN 500 MG TABLET PO PRN (02:30)
[2017-01-17] MEDS ORDERED: Z GUARD REMEDY 4 OZ OINT TP PRN (02:30)
[2017-01-17] MEDS ORDERED: IPRATROPIUM NEB FS 0.5 MG/2.5 ML AMPUL.NEB NEB PRN (02:30)
[2017-01-17] MEDS ORDERED: LORAZEPAM 0.5 MG TABLET PO PRN (02:30)
[2017-01-17] MEDS ORDERED: MAG HYDROX/AL HYDROX/SIMETH 30 ML UDC PO PRN (02:30)
[2017-01-17] MEDS ORDERED: TEMAZEPAM 7.5 MG CAPSULE PO PRN (02:30)
[2017-01-17] MEDS ORDERED: MAGNESIUM HYDROXIDE 30 ML UDC PO PRN (02:30)
[2017-01-17] MEDS: CHOLESTYRAMINE/ASPARTAME 4 G/PKT PACKET PO SCH ×3 (05:00→21:41)
[2017-01-17] MEDS ORDERED: LEVOTHYROXINE SODIUM 150 MCG TABLET PO SCH (07:30)
[2017-01-17 08:00] VITALS: BP 110/70
[2017-01-17] MEDS ORDERED: VALSARTAN 80 MG TABLET PO SCH (09:00)
[2017-01-17] MEDS: AMLODIPINE BESYLATE 2.5 MG TABLET PO SCH (09:00)
[2017-01-17] MEDS ORDERED: FLUCONAZOLE (100 MG) 100 MG TABLET PO SCH (09:00)
[2017-01-17] MEDS ORDERED: DIVALPROEX SODIUM 500 MG TABLET.DR PO SCH ×2 (09:00→21:00)
[2017-01-17] MEDS: GABAPENTIN 400 MG CAPSULE PO SCH ×3 (09:44→17:24)
[2017-01-17] MEDS: BACLOFEN (10 MG) 10 MG TABLET PO SCH ×3 (09:44→17:24)
[2017-01-17] MEDS: CARBIDOPA/LEVODOPA 25/100 MG 1 UDTAB PO SCH ×4 (09:46→21:42)
[2017-01-17] MEDS: MULTIVITAMINS,THERAPEUTIC 1 UDTAB TABLET PO SCH (09:47)
[2017-01-17] MEDS: LACTOBACILLUS RHAMNOSUS GG 1 EACH CAP.SPRINK PO SCH ×2 (09:47→17:24)
[2017-01-17] MEDS: ANASTROZOLE 1 MG TABLET PO SCH (09:47)
[2017-01-17] MEDS: FENOFIBRATE NANOCRYS (145 MG) 145 MG TABLET PO SCH (09:47)
[2017-01-17] MEDS: PANTOPRAZOLE 40 MG TABLET.DR PO SCH (09:47)
[2017-01-17] MEDS: ENOXAPARIN SODIUM 40 MG/0.4 ML DISP.SYRIN SQ SCH (09:48)
[2017-01-17 10:23] LABS: BASOPHILS % (AUTO) 0.3 % (0.0-2.0); DIFF TOTAL % 100 %; EOSINOPHILS # (AUTO) 0.3 /CMM (0.0-0.7); EOSINOPHILS % (AUTO) 5.8 % (0.0-6.0); HEMATOCRIT 31 % (33-45); HEMOGLOBIN 10.2 g/dL (11.5-14.8); LYMPHOCYTES # (AUTO) 1.3 /CMM (0.8-4.8); LYMPHOCYTES % (AUTO) 23.1 % (20.0-44.0); MEAN CORPUSCULAR HEMOGLOBIN 31 PG (26.0-33.0); MEAN CORPUSCULAR HGB CONC 33 g/dl (31.0-36.0); MEAN CORPUSCULAR VOLUME 94 fL (82-100); MONOCYTES # (AUTO) 0.7 /CMM (0.1-1.30); MONOCYTES % (AUTO) 13.2 % (2.0-12.0); NEUTROPHILS # (AUTO) 3.2 /CMM (1.8-8.9); NEUTROPHILS % (AUTO) 57.6 % (43.0-81.0); PLATELET COUNT (AUTO) 202 /CMM (150-450); RED BLOOD CELL COUNT(AUTO) 3.31 MIL/uL (4.0-5.2); WHITE BLOOD COUNT (AUTO) 5.5 K/uL (4.3-11.0)
[2017-01-17 10:34] LABS: BILIRUBIN,TOTAL 0.3 mg/dL (0.2-1.0); CALCIUM, SERUM 8.6 mg/dL (8.5-10.1); CREATININE 1.2 mg/dL (0.6-1.3); POTASSIUM 4.5 mmol/L (3.5-5.1); TOTAL PROTEIN, SERUM 6.5 g/dL (6.4-8.2)
[2017-01-17] MEDS ORDERED: ALLA266C2 TP (11:05)
[2017-01-17] MEDS ORDERED: VALS80TA2 PO (11:05)
[2017-01-17] MEDS ORDERED: MULT-24 PO (11:05)
[2017-01-17] MEDS ORDERED: HYDR-3326 PO (11:05)
[2017-01-17] MEDS ORDERED: IPRA0.2S9 IH (11:05)
[2017-01-17] MEDS ORDERED: GUAI10SY3 PO (11:05)
[2017-01-17] MEDS ORDERED: ALBU2.5V13 IH (11:05)
[2017-01-17 16:06] VITALS: BP 138/68
[2017-01-17] MEDS: Z GUARD REMEDY 4 OZ OINT TP SCH (18:49)
[2017-01-17 20:00] VITALS: BP 101/66
[2017-01-17] MEDS: DIVALPROEX SODIUM 500 MG TABLET.DR PO SCH (21:41)
[2017-01-17] MEDS: risperiDONE 1 MG TABLET PO SCH (21:41)
[2017-01-18] MEDS: Z GUARD REMEDY 4 OZ OINT TP SCH ×2 (05:22→17:53)
[2017-01-18] MEDS: CHOLESTYRAMINE/ASPARTAME 4 G/PKT PACKET PO SCH ×3 (05:22→22:07)
[2017-01-18] MEDS: LEVOTHYROXINE SODIUM 75 MCG TABLET PO SCH (06:30)
[2017-01-18] MEDS: PANTOPRAZOLE 40 MG TABLET.DR PO SCH (06:30)
[2017-01-18 08:20] VITALS: BP 136/78
[2017-01-18] MEDS: DIVALPROEX SODIUM 500 MG TABLET.DR PO SCH ×2 (08:27→22:07)
[2017-01-18] MEDS: MULTIVITAMINS,THERAPEUTIC 1 UDTAB TABLET PO SCH (08:27)
[2017-01-18] MEDS: BACLOFEN (10 MG) 10 MG TABLET PO SCH ×3 (08:27→17:53)
[2017-01-18] MEDS: LACTOBACILLUS RHAMNOSUS GG 1 EACH CAP.SPRINK PO SCH ×2 (08:28→17:53)
[2017-01-18] MEDS: FENOFIBRATE NANOCRYS (145 MG) 145 MG TABLET PO SCH (08:28)
[2017-01-18] MEDS: CARBIDOPA/LEVODOPA 25/100 MG 1 UDTAB PO SCH ×4 (08:28→22:08)
[2017-01-18] MEDS: GABAPENTIN 400 MG CAPSULE PO SCH ×3 (08:28→17:53)
[2017-01-18] MEDS: AMLODIPINE BESYLATE 2.5 MG TABLET PO SCH (08:28)
[2017-01-18] MEDS: risperiDONE 1 MG TABLET PO SCH ×2 (08:28→22:08)
[2017-01-18] MEDS: ENOXAPARIN SODIUM 40 MG/0.4 ML DISP.SYRIN SQ SCH (08:29)
[2017-01-18] MEDS: ANASTROZOLE 1 MG TABLET PO SCH (08:30)
[2017-01-18 13:07] LABS: BASOPHILS % (AUTO) 0.4 % (0.0-2.0); DIFF TOTAL % 100 %; EOSINOPHILS # (AUTO) 0.3 /CMM (0.0-0.7); EOSINOPHILS % (AUTO) 6.3 % (0.0-6.0); HEMATOCRIT 32 % (33-45); HEMOGLOBIN 10.6 g/dL (11.5-14.8); LYMPHOCYTES # (AUTO) 1.6 /CMM (0.8-4.8); LYMPHOCYTES % (AUTO) 31.9 % (20.0-44.0); MEAN CORPUSCULAR HEMOGLOBIN 31 PG (26.0-33.0); MEAN CORPUSCULAR HGB CONC 33 g/dl (31.0-36.0); MEAN CORPUSCULAR VOLUME 93 fL (82-100); MONOCYTES # (AUTO) 0.7 /CMM (0.1-1.30); NEUTROPHILS # (AUTO) 2.4 /CMM (1.8-8.9); NEUTROPHILS % (AUTO) 48.4 % (43.0-81.0); PLATELET COUNT (AUTO) 197 /CMM (150-450); RED BLOOD CELL COUNT(AUTO) 3.47 MIL/uL (4.0-5.2); WHITE BLOOD COUNT (AUTO) 5.1 K/uL (4.3-11.0)
[2017-01-18 13:31] LABS: BILIRUBIN,TOTAL 0.2 mg/dL (0.2-1.0); CALCIUM, SERUM 8.6 mg/dL (8.5-10.1); CREATININE 1.2 mg/dL (0.6-1.3); POTASSIUM 4.6 mmol/L (3.5-5.1); TOTAL PROTEIN, SERUM 6.6 g/dL (6.4-8.2)
[2017-01-18 16:01] VITALS: BP 120/52
[2017-01-18 16:02] VITALS: BP 116/76
[2017-01-18 20:00] VITALS: BP 104/66
[2017-01-19] MEDS: CHOLESTYRAMINE/ASPARTAME 4 G/PKT PACKET PO SCH ×3 (05:59→21:40)
[2017-01-19] MEDS: Z GUARD REMEDY 4 OZ OINT TP SCH ×2 (06:03→17:21)
[2017-01-19] MEDS: LEVOTHYROXINE SODIUM 75 MCG TABLET PO SCH (06:04)
[2017-01-19] MEDS: DIVALPROEX SODIUM 500 MG TABLET.DR PO SCH ×2 (08:31→21:40)
[2017-01-19] MEDS: LACTOBACILLUS RHAMNOSUS GG 1 EACH CAP.SPRINK PO SCH ×2 (08:31→17:18)
[2017-01-19] MEDS: PANTOPRAZOLE 40 MG TABLET.DR PO SCH (08:31)
[2017-01-19] MEDS: BACLOFEN (10 MG) 10 MG TABLET PO SCH ×3 (08:32→17:18)
[2017-01-19] MEDS: MULTIVITAMINS,THERAPEUTIC 1 UDTAB TABLET PO SCH (08:32)
[2017-01-19] MEDS: risperiDONE 1 MG TABLET PO SCH ×2 (08:32→17:18)
[2017-01-19] MEDS: FENOFIBRATE NANOCRYS (145 MG) 145 MG TABLET PO SCH (08:32)
[2017-01-19] MEDS: GABAPENTIN 400 MG CAPSULE PO SCH ×3 (08:32→17:19)
[2017-01-19] MEDS: AMLODIPINE BESYLATE 2.5 MG TABLET PO SCH (08:32)
[2017-01-19] MEDS: ENOXAPARIN SODIUM 40 MG/0.4 ML DISP.SYRIN SQ SCH (08:39)
[2017-01-19] MEDS: ANASTROZOLE 1 MG TABLET PO SCH (08:43)
[2017-01-19] MEDS: CARBIDOPA/LEVODOPA 25/100 MG 1 UDTAB PO SCH ×4 (08:45→21:40)
[2017-01-19 09:31] VITALS: BP 139/75
[2017-01-19] MEDS ORDERED: BENZTROPINE MESYLATE (1 MG) 1 MG TABLET PO PRN (15:00)
[2017-01-19 16:36] VITALS: BP 100/67
[2017-01-19] MEDS: BENZTROPINE MESYLATE (1 MG) 1 MG TABLET PO SCH (17:19)
[2017-01-19 20:17] VITALS: BP 112/64
[2017-01-20] MEDS: Z GUARD REMEDY 4 OZ OINT TP SCH ×2 (05:10→18:47)
[2017-01-20] MEDS: CHOLESTYRAMINE/ASPARTAME 4 G/PKT PACKET PO SCH ×3 (05:10→21:41)
[2017-01-20] MEDS: PANTOPRAZOLE 40 MG TABLET.DR PO SCH (06:56)
[2017-01-20] MEDS: LEVOTHYROXINE SODIUM 75 MCG TABLET PO SCH (06:56)
[2017-01-20 08:00] VITALS: BP 126/70
[2017-01-20] MEDS: BACLOFEN (10 MG) 10 MG TABLET PO SCH ×3 (08:24→16:25)
[2017-01-20] MEDS: MULTIVITAMINS,THERAPEUTIC 1 UDTAB TABLET PO SCH (08:24)
[2017-01-20] MEDS: AMLODIPINE BESYLATE 2.5 MG TABLET PO SCH (08:24)
[2017-01-20] MEDS: FENOFIBRATE NANOCRYS (145 MG) 145 MG TABLET PO SCH (08:25)
[2017-01-20] MEDS: risperiDONE 1 MG TABLET PO SCH ×3 (08:25→16:24)
[2017-01-20] MEDS: BENZTROPINE MESYLATE (1 MG) 1 MG TABLET PO SCH ×2 (08:25→16:24)
[2017-01-20] MEDS: DIVALPROEX SODIUM 500 MG TABLET.DR PO SCH ×2 (08:25→21:41)
[2017-01-20] MEDS: GABAPENTIN 400 MG CAPSULE PO SCH ×3 (08:25→16:24)
[2017-01-20] MEDS: LACTOBACILLUS RHAMNOSUS GG 1 EACH CAP.SPRINK PO SCH ×2 (08:25→16:24)
[2017-01-20] MEDS: ANASTROZOLE 1 MG TABLET PO SCH (08:31)
[2017-01-20] MEDS: CARBIDOPA/LEVODOPA 25/100 MG 1 UDTAB PO SCH ×4 (08:31→21:41)
[2017-01-20] MEDS: ENOXAPARIN SODIUM 40 MG/0.4 ML DISP.SYRIN SQ SCH (08:40)
[2017-01-20 16:00] VITALS: BP 102/75
[2017-01-20 20:01] VITALS: BP 130/65
[2017-01-21] MEDS: CHOLESTYRAMINE/ASPARTAME 4 G/PKT PACKET PO SCH ×3 (05:48→22:02)
[2017-01-21] MEDS: Z GUARD REMEDY 4 OZ OINT TP SCH ×2 (05:52→17:16)
[2017-01-21] MEDS: PANTOPRAZOLE 40 MG TABLET.DR PO SCH (06:49)
[2017-01-21] MEDS: LEVOTHYROXINE SODIUM 75 MCG TABLET PO SCH (06:50)
[2017-01-21 08:00] VITALS: BP 128/76
[2017-01-21] MEDS: LACTOBACILLUS RHAMNOSUS GG 1 EACH CAP.SPRINK PO SCH ×2 (08:46→17:15)
[2017-01-21] MEDS: FENOFIBRATE NANOCRYS (145 MG) 145 MG TABLET PO SCH (08:46)
[2017-01-21] MEDS: GABAPENTIN 400 MG CAPSULE PO SCH ×3 (08:46→17:15)
[2017-01-21] MEDS: DIVALPROEX SODIUM 500 MG TABLET.DR PO SCH ×2 (08:46→21:12)
[2017-01-21] MEDS: CARBIDOPA/LEVODOPA 25/100 MG 1 UDTAB PO SCH ×4 (08:46→21:13)
[2017-01-21] MEDS: BENZTROPINE MESYLATE (1 MG) 1 MG TABLET PO SCH ×2 (08:46→17:15)
[2017-01-21] MEDS: AMLODIPINE BESYLATE 2.5 MG TABLET PO SCH (08:46)
[2017-01-21] MEDS: MULTIVITAMINS,THERAPEUTIC 1 UDTAB TABLET PO SCH (08:47)
[2017-01-21] MEDS: risperiDONE 1 MG TABLET PO SCH ×3 (08:47→17:15)
[2017-01-21] MEDS: BACLOFEN (10 MG) 10 MG TABLET PO SCH ×3 (08:47→17:15)
[2017-01-21] MEDS: ANASTROZOLE 1 MG TABLET PO SCH (08:51)
[2017-01-21] MEDS: ENOXAPARIN SODIUM 40 MG/0.4 ML DISP.SYRIN SQ SCH (08:57)
[2017-01-21 16:00] VITALS: BP 101/64
[2017-01-21 21:19] VITALS: BP 108/66
[2017-01-22] MEDS: CHOLESTYRAMINE/ASPARTAME 4 G/PKT PACKET PO SCH ×3 (05:58→22:13)
[2017-01-22] MEDS: Z GUARD REMEDY 4 OZ OINT TP SCH ×2 (06:11→17:04)
[2017-01-22] MEDS: LEVOTHYROXINE SODIUM 75 MCG TABLET PO SCH (06:27)
[2017-01-22] MEDS: PANTOPRAZOLE 40 MG TABLET.DR PO SCH (07:59)
[2017-01-22 08:42] VITALS: BP 127/66
[2017-01-22] MEDS: LACTOBACILLUS RHAMNOSUS GG 1 EACH CAP.SPRINK PO SCH ×2 (09:30→17:03)
[2017-01-22] MEDS: FENOFIBRATE NANOCRYS (145 MG) 145 MG TABLET PO SCH (09:31)
[2017-01-22] MEDS: risperiDONE 1 MG TABLET PO SCH ×3 (09:31→17:03)
[2017-01-22] MEDS: ANASTROZOLE 1 MG TABLET PO SCH (09:31)
[2017-01-22] MEDS: CARBIDOPA/LEVODOPA 25/100 MG 1 UDTAB PO SCH ×4 (09:31→22:12)
[2017-01-22] MEDS: DIVALPROEX SODIUM 500 MG TABLET.DR PO SCH ×2 (09:31→22:13)
[2017-01-22] MEDS: GABAPENTIN 400 MG CAPSULE PO SCH ×3 (09:31→17:03)
[2017-01-22] MEDS: AMLODIPINE BESYLATE 2.5 MG TABLET PO SCH (09:31)
[2017-01-22] MEDS: MULTIVITAMINS,THERAPEUTIC 1 UDTAB TABLET PO SCH (09:31)
[2017-01-22] MEDS: BACLOFEN (10 MG) 10 MG TABLET PO SCH ×3 (09:32→17:03)
[2017-01-22] MEDS: BENZTROPINE MESYLATE (1 MG) 1 MG TABLET PO SCH ×2 (09:32→17:03)
[2017-01-22] MEDS: ENOXAPARIN SODIUM 40 MG/0.4 ML DISP.SYRIN SQ SCH (09:40)
[2017-01-22 16:30] VITALS: BP 108/70
[2017-01-22 20:01] VITALS: BP 99/64
[2017-01-23] MEDS: CHOLESTYRAMINE/ASPARTAME 4 G/PKT PACKET PO SCH ×3 (05:34→21:20)
[2017-01-23] MEDS: Z GUARD REMEDY 4 OZ OINT TP SCH ×2 (05:58→18:40)
[2017-01-23] MEDS: LEVOTHYROXINE SODIUM 75 MCG TABLET PO SCH ×2 (06:49→12:05)
[2017-01-23 08:38] VITALS: BP 108/74
[2017-01-23] MEDS: AMLODIPINE BESYLATE 2.5 MG TABLET PO SCH (09:00)
[2017-01-23] MEDS: FENOFIBRATE NANOCRYS (145 MG) 145 MG TABLET PO SCH (09:00)
[2017-01-23] MEDS: ENOXAPARIN SODIUM 40 MG/0.4 ML DISP.SYRIN SQ SCH (09:00)
[2017-01-23] MEDS: ANASTROZOLE 1 MG TABLET PO SCH (09:00)
[2017-01-23] MEDS: BENZTROPINE MESYLATE (1 MG) 1 MG TABLET PO SCH ×2 (12:06→17:00)
[2017-01-23] MEDS: DIVALPROEX SODIUM 500 MG TABLET.DR PO SCH ×2 (12:06→21:19)
[2017-01-23] MEDS: LACTOBACILLUS RHAMNOSUS GG 1 EACH CAP.SPRINK PO SCH ×2 (12:07→17:00)
[2017-01-23] MEDS: BACLOFEN (10 MG) 10 MG TABLET PO SCH ×3 (12:07→17:00)
[2017-01-23] MEDS: GABAPENTIN 400 MG CAPSULE PO SCH ×3 (12:07→17:00)
[2017-01-23] MEDS: CARBIDOPA/LEVODOPA 25/100 MG 1 UDTAB PO SCH ×4 (12:09→21:20)
[2017-01-23] MEDS: PANTOPRAZOLE 40 MG TABLET.DR PO SCH (12:10)
[2017-01-23] MEDS: risperiDONE 1 MG TABLET PO SCH ×3 (12:10→17:00)
[2017-01-23] MEDS: MULTIVITAMINS,THERAPEUTIC 1 UDTAB TABLET PO SCH (12:10)
[2017-01-23 16:00] VITALS: BP 102/57
[2017-01-23 19:58] VITALS: BP 104/66
[2017-01-23 20:00] VITALS: BP 104/66
[2017-01-24] MEDS: CHOLESTYRAMINE/ASPARTAME 4 G/PKT PACKET PO SCH ×3 (06:20→21:34)
[2017-01-24] MEDS: Z GUARD REMEDY 4 OZ OINT TP SCH ×2 (06:21→17:23)
[2017-01-24 08:00] VITALS: BP 109/49
[2017-01-24] MEDS: LEVOTHYROXINE SODIUM 75 MCG TABLET PO SCH ×2 (08:19→08:45)
[2017-01-24] MEDS: AMLODIPINE BESYLATE 2.5 MG TABLET PO SCH (08:42)
[2017-01-24] MEDS: BENZTROPINE MESYLATE (1 MG) 1 MG TABLET PO SCH ×2 (08:44→17:20)
[2017-01-24] MEDS: MULTIVITAMINS,THERAPEUTIC 1 UDTAB TABLET PO SCH (08:44)
[2017-01-24] MEDS: PANTOPRAZOLE 40 MG TABLET.DR PO SCH (08:44)
[2017-01-24] MEDS: LACTOBACILLUS RHAMNOSUS GG 1 EACH CAP.SPRINK PO SCH ×2 (08:44→17:20)
[2017-01-24] MEDS: FENOFIBRATE NANOCRYS (145 MG) 145 MG TABLET PO SCH (08:45)
[2017-01-24] MEDS: BACLOFEN (10 MG) 10 MG TABLET PO SCH ×3 (08:45→17:20)
[2017-01-24] MEDS: ANASTROZOLE 1 MG TABLET PO SCH (08:45)
[2017-01-24] MEDS: risperiDONE 1 MG TABLET PO SCH ×3 (08:45→17:19)
[2017-01-24] MEDS: GABAPENTIN 400 MG CAPSULE PO SCH ×3 (08:45→17:19)
[2017-01-24] MEDS: DIVALPROEX SODIUM 500 MG TABLET.DR PO SCH ×2 (08:45→21:34)
[2017-01-24] MEDS: ENOXAPARIN SODIUM 40 MG/0.4 ML DISP.SYRIN SQ SCH (08:46)
[2017-01-24] MEDS: CARBIDOPA/LEVODOPA 25/100 MG 1 UDTAB PO SCH ×4 (08:47→21:36)
[2017-01-24 16:16] VITALS: BP 122/51
[2017-01-24 20:00] VITALS: BP_SYST 108; BP_SYST 131; BP_DIAS 59; BP_DIAS 78
[2017-01-25] MEDS: Z GUARD REMEDY 4 OZ OINT TP SCH ×2 (05:54→18:25)
[2017-01-25] MEDS: CHOLESTYRAMINE/ASPARTAME 4 G/PKT PACKET PO SCH ×3 (05:54→22:08)
[2017-01-25 08:00] VITALS: BP 121/60
[2017-01-25] MEDS: GABAPENTIN 400 MG CAPSULE PO SCH ×4 (09:00→17:00)
[2017-01-25] MEDS: DIVALPROEX SODIUM 500 MG TABLET.DR PO SCH ×2 (09:12→21:10)
[2017-01-25] MEDS: FENOFIBRATE NANOCRYS (145 MG) 145 MG TABLET PO SCH (09:12)
[2017-01-25] MEDS: LEVOTHYROXINE SODIUM 75 MCG TABLET PO SCH (09:12)
[2017-01-25] MEDS: CARBIDOPA/LEVODOPA 25/100 MG 1 UDTAB PO SCH ×4 (09:13→21:10)
[2017-01-25] MEDS: BENZTROPINE MESYLATE (1 MG) 1 MG TABLET PO SCH ×2 (09:13→18:26)
[2017-01-25] MEDS: BACLOFEN (10 MG) 10 MG TABLET PO SCH ×3 (09:13→18:26)
[2017-01-25] MEDS: risperiDONE 1 MG TABLET PO SCH ×3 (09:13→18:26)
[2017-01-25] MEDS: AMLODIPINE BESYLATE 2.5 MG TABLET PO SCH (09:13)
[2017-01-25] MEDS: LACTOBACILLUS RHAMNOSUS GG 1 EACH CAP.SPRINK PO SCH ×2 (09:14→18:26)
[2017-01-25] MEDS: PANTOPRAZOLE 40 MG TABLET.DR PO SCH (09:14)
[2017-01-25] MEDS: MULTIVITAMINS,THERAPEUTIC 1 UDTAB TABLET PO SCH (09:14)
[2017-01-25] MEDS: ENOXAPARIN SODIUM 40 MG/0.4 ML DISP.SYRIN SQ SCH (09:15)
[2017-01-25] MEDS: ANASTROZOLE 1 MG TABLET PO SCH (09:16)
[2017-01-25] MEDS: DIVALPROEX SODIUM 250 MG TABLET.DR PO SCH (14:02)
[2017-01-25 16:18] VITALS: BP 153/91
[2017-01-25 20:00] VITALS: BP 113/77
[2017-01-26] MEDS: CHOLESTYRAMINE/ASPARTAME 4 G/PKT PACKET PO SCH ×3 (04:39→20:23)
[2017-01-26] MEDS: Z GUARD REMEDY 4 OZ OINT TP SCH ×2 (06:08→17:08)
[2017-01-26 08:15] VITALS: BP 143/73
[2017-01-26] MEDS: PANTOPRAZOLE 40 MG TABLET.DR PO SCH (08:40)
[2017-01-26] MEDS: DIVALPROEX SODIUM 500 MG TABLET.DR PO SCH ×2 (08:40→20:23)
[2017-01-26] MEDS: BACLOFEN (10 MG) 10 MG TABLET PO SCH ×3 (08:40→16:46)
[2017-01-26] MEDS: LEVOTHYROXINE SODIUM 75 MCG TABLET PO SCH (08:40)
[2017-01-26] MEDS: GABAPENTIN 400 MG CAPSULE PO SCH ×3 (08:40→16:46)
[2017-01-26] MEDS: risperiDONE 1 MG TABLET PO SCH ×3 (08:40→16:46)
[2017-01-26] MEDS: BENZTROPINE MESYLATE (1 MG) 1 MG TABLET PO SCH ×2 (08:41→16:47)
[2017-01-26] MEDS: FENOFIBRATE NANOCRYS (145 MG) 145 MG TABLET PO SCH (08:41)
[2017-01-26] MEDS: AMLODIPINE BESYLATE 2.5 MG TABLET PO SCH (08:41)
[2017-01-26] MEDS: LACTOBACILLUS RHAMNOSUS GG 1 EACH CAP.SPRINK PO SCH ×2 (08:41→16:46)
[2017-01-26] MEDS: MULTIVITAMINS,THERAPEUTIC 1 UDTAB TABLET PO SCH (08:41)
[2017-01-26] MEDS: ANASTROZOLE 1 MG TABLET PO SCH (08:42)
[2017-01-26] MEDS: ENOXAPARIN SODIUM 40 MG/0.4 ML DISP.SYRIN SQ SCH (09:29)
[2017-01-26] MEDS: CARBIDOPA/LEVODOPA 25/100 MG 1 UDTAB PO SCH ×4 (09:31→20:23)
[2017-01-26] MEDS: DIVALPROEX SODIUM 250 MG TABLET.DR PO SCH (12:07)
[2017-01-26 16:01] VITALS: BP 125/68
[2017-01-26 20:00] VITALS: BP 107/65
[2017-01-27] MEDS: CHOLESTYRAMINE/ASPARTAME 4 G/PKT PACKET PO SCH (05:31)
[2017-01-27] MEDS: Z GUARD REMEDY 4 OZ OINT TP SCH (05:33)
[2017-01-27 08:00] VITALS: BP 137/73
[2017-01-27] MEDS: LEVOTHYROXINE SODIUM 75 MCG TABLET PO SCH (08:05)
[2017-01-27] MEDS: PANTOPRAZOLE 40 MG TABLET.DR PO SCH (08:05)
[2017-01-27] MEDS: ANASTROZOLE 1 MG TABLET PO SCH (09:00)
[2017-01-27] MEDS: ENOXAPARIN SODIUM 40 MG/0.4 ML DISP.SYRIN SQ SCH (09:00)
[2017-01-27] MEDS: CARBIDOPA/LEVODOPA 25/100 MG 1 UDTAB PO SCH (09:00)
[2017-01-27] MEDS: GABAPENTIN 400 MG CAPSULE PO SCH (09:49)
[2017-01-27] MEDS: FENOFIBRATE NANOCRYS (145 MG) 145 MG TABLET PO SCH (09:49)
[2017-01-27] MEDS: risperiDONE 1 MG TABLET PO SCH (09:49)
[2017-01-27] MEDS: BACLOFEN (10 MG) 10 MG TABLET PO SCH (09:49)
[2017-01-27 09:50] VITALS: BP 137/73
[2017-01-27] MEDS: AMLODIPINE BESYLATE 2.5 MG TABLET PO SCH (09:50)
[2017-01-27] MEDS: MULTIVITAMINS,THERAPEUTIC 1 UDTAB TABLET PO SCH (09:50)
[2017-01-27] MEDS: BENZTROPINE MESYLATE (1 MG) 1 MG TABLET PO SCH (09:50)
[2017-01-27] MEDS: DIVALPROEX SODIUM 500 MG TABLET.DR PO SCH (09:50)
[2017-01-27] MEDS: LACTOBACILLUS RHAMNOSUS GG 1 EACH CAP.SPRINK PO SCH (09:50)
== END 2017-01-27 11:00 | DRG 885 ==
LOC: GPS 01:04
PROVIDERS: ADMIT Psychiatry & Neurology Psychiatry; ATTEND Internal Medicine
DX: F31.9 Bipolar disorder, unspecified (principal); I11.0 Hypertensive heart disease with heart failure; G93.40 Encephalopathy, unspecified; N39.0 Urinary tract infection, site not specified; I50.32 Chronic diastolic (congestive) heart failure; F03.90 Unspecified dementia, unspecified severity, without behavioral disturbance, psychotic disturbance, mood disturbance, and anxiety; Z87.440 Personal history of urinary (tract) infections; F29 Unspecified psychosis not due to a substance or known physiological condition; E86.0 Dehydration; J20.9 Acute bronchitis, unspecified; G20 Parkinson's disease; M17.11 Unilateral primary osteoarthritis, right knee; M19.012 Primary osteoarthritis, left shoulder; M19.011 Primary osteoarthritis, right shoulder; N28.9 Disorder of kidney and ureter, unspecified; D64.9 Anemia, unspecified; E03.9 Hypothyroidism, unspecified; E66.01 Morbid (severe) obesity due to excess calories; E78.5 Hyperlipidemia, unspecified; N32.81 Overactive bladder; Z86.73 Personal history of transient ischemic attack (TIA), and cerebral infarction without residual deficits; Z90.12 Acquired absence of left breast and nipple; K76.0 Fatty (change of) liver, not elsewhere classified; Z85.3 Personal history of malignant neoplasm of breast; Z86.19 Personal history of other infectious and parasitic diseases; Z87.891 Personal history of nicotine dependence; Z90.710 Acquired absence of both cervix and uterus
CPT/HCPCS: 36415; 80053-TC; 80164-TC; 82962-TC; 85025-TC; J1650

== ENCOUNTER 2019-11-22 09:25 | Outpatient (CLI) | payer MEDICARE, OTHER ==
[~2019-11-22 09:25] MED LIST changes: +ALBU2.5V13 IH; +ALBU2.5V13 NEB; -ALBU8.5H2 INH; +ALBU8.5H8 INH; +ALLA266C2 TP; -AMLO5TAB2 PO; +AMLO5TAB9 PO; +BACL10TA PO; -DICL100G34 TP; +DIVA500T2 PO; +ENOX40DI SQ; -FENO145T20 PO; +FENO145T35 PO; +FLUC100T8 PO; +GUAI10SY3 PO; +HYDR-3974 PO; +IPRA0.2S9 IH; +IPRA0.2S9 NEB; +LACT1CAP72 PO; +MULT-24 PO; -MULT1TAB73 PO; +NAPR-1009 PO; -NAPR500T3 PO; +OMEP40CA13 PO; -OMEP40CA37 PO; +PANT40TA4 PO; +TRAM50TA2 PO; -VALP250C3 PO; -VALS160T2 PO; +VALS80TA2 PO
== END 2019-11-22 23:59 ==
LOC: WOU 09:25
PROVIDERS: ATTEND Surgery
DX: C44.311 Basal cell carcinoma of skin of nose (principal); C44.319 Basal cell carcinoma of skin of other parts of face; E66.9 Obesity, unspecified; Z68.27 Body mass index [BMI] 27.0-27.9, adult; R26.2 Difficulty in walking, not elsewhere classified; Z79.82 Long term (current) use of aspirin; Z79.899 Other long term (current) drug therapy
CPT/HCPCS: 11102; 11103; 88305; J3490; 11100; 11101

== ENCOUNTER 2019-12-19 11:35 | Inpatient (IN) | payer MEDICARE, OTHER ==
[~2019-12-19] VITALS: Ht 162.6 cm; Wt 93.0 kg
[~2019-12-19 11:35] MED LIST changes: +FENO145T21 PO; -FENO145T35 PO
[2019-12-19 12:02] LABS: BASOPHILS # (AUTO) 0.1 /CMM (0.0-0.2); EOSINOPHILS % (AUTO) 3.1 % (0.0-6.0); HEMATOCRIT 37 % (33-45); HEMOGLOBIN 12.2 g/dL (11.5-14.8); LYMPHOCYTES # (AUTO) 2.2 /CMM (0.8-4.8); LYMPHOCYTES % (AUTO) 21.6 % (20.0-44.0); MEAN CORPUSCULAR HGB CONC 33 g/dl (31.0-36.0); MEAN CORPUSCULAR VOLUME 100 fL (82-100); MONOCYTES # (AUTO) 1.2 /CMM (0.1-1.30); MONOCYTES % (AUTO) 11.6 % (2.0-12.0); NEUTROPHILS # (AUTO) 6.4 /CMM (1.8-8.9); NEUTROPHILS % (AUTO) 62.7 % (43.0-81.0); PLATELET COUNT (AUTO) 186 /CMM (150-450); RED BLOOD CELL COUNT(AUTO) 3.72 MIL/uL (4.0-5.2); WHITE BLOOD COUNT (AUTO) 10.2 K/uL (4.3-11.0)
[2019-12-19 12:04] LABS: CALCIUM, SERUM 8.6 mg/dL (8.5-10.1); CREATININE 1.1 mg/dL (0.6-1.3); POTASSIUM 4.5 mmol/L (3.5-5.1)
[2019-12-19 12:10] LABS: ALBUMIN 2.8 g/dL (3.4-5.0); BILIRUBIN,DIRECT 0.1 mg/dL (0.0-0.2); BILIRUBIN,TOTAL 0.3 mg/dL (0.2-1.0); TOTAL PROTEIN, SERUM 6.8 g/dL (6.4-8.2)
--- NOTE | 2019-12-19 12:15 | NUR ---
PAGED DR. LAINEZ.
--- NOTE | 2019-12-19 12:15 | NUR ---
Patient alert orreinted non distress no pain made aware plan of care
--- NOTE | 2019-12-19 12:16 | NUR ---
CALLED NURSING SUP FOR M/S BED.
--- NOTE | 2019-12-19 12:44 | NUR ---
ROOM 313-1
--- NOTE | 2019-12-19 13:13 | NUR ---
Report given to Sandi NAIR ,
--- NOTE | 2019-12-19 13:45 | NUR ---
Admit Note Patient received from ER for medical clearance, reported Melissa NAIR, denies any pain, or discomfort, stable vital sign. Noticed skin excoriation on bilateral inner buttocks, picture taken.
[2019-12-19 16:00] VITALS: BP 115/47
[2019-12-19] MEDS ORDERED: ALBUTEROL FS 2.5 MG/0.5 ML VIAL.NEB IH PRN (16:00)
[2019-12-19] MEDS ORDERED: TEMAZEPAM 15 MG CAPSULE PO PRN (16:00)
[2019-12-19] MEDS ORDERED: ACETAMINOPHEN 325 MG TABLET PO PRN ×2 (16:00→16:30)
[2019-12-19] MEDS ORDERED: DOCUSATE SODIUM 100 MG CAPSULE PO PRN (16:00)
[2019-12-19] MEDS ORDERED: TRAMADOL HCL 50 MG TABLET PO PRN ×2 (16:00→16:30)
[2019-12-19] MEDS ORDERED: IPRATROPIUM NEB FS 0.5 MG/2.5 ML AMPUL.NEB IH PRN (16:00)
[2019-12-19] MEDS ORDERED: ALBUTEROL SULFATE INH 18 GM HFA.AER.AD NEB PRN (16:00)
[2019-12-19] MEDS ORDERED: HYDROCODONE/APAP 5/325MG 1 EACH TABLET PO PRN (16:00)
[2019-12-19] MEDS ORDERED: GUAIFENESIN/CODEINE 10 ML UDC PO PRN (16:00)
[2019-12-19] MEDS ORDERED: IV D5/0.45 NACL 1,000 ML IV PRN (16:30)
[2019-12-19] MEDS: ENOXAPARIN SODIUM 40 MG/0.4 ML DISP.SYRIN SQ SCH (17:00)
[2019-12-19] MEDS ORDERED: CARBIDOPA/LEVODOPA 25/100 MG 1 UDTAB PO SCH (17:00)
[2019-12-19] MEDS ORDERED: risperiDONE 0.25 MG TABLET PO SCH (17:00)
[2019-12-19] MEDS ORDERED: GABAPENTIN 300 MG CAPSULE PO SCH (17:00)
[2019-12-19] MEDS: CARBIDOPA/LEVODOPA 25/100 MG 1 UDTAB PO SCH (17:27)
[2019-12-19] MEDS: LACTOBACILLUS RHAMNOSUS GG 1 EACH CAP.SPRINK PO SCH (17:28)
[2019-12-19] MEDS: BACLOFEN (10 MG) 10 MG TABLET PO SCH (17:28)
--- NOTE | 2019-12-19 18:30 | NUR ---
MS/RN Closing note Pt in bed comfortably, no appears pain or discomfort. Skin is warm to touch, clean/dry and intact mid line dressing. Respiratory even and un labored. Keep lower bed position with elevated HOB. Call light within reach, will endorse to night cleaner.
--- NOTE | 2019-12-19 19:50 | NUR ---
MS RN OPENING NOTES PATIENT RECEIVED RESTING IN BED A/O x 4, ABLE TO MAKE NEEDS KNOWN. PATIENT STABLE ON RA WITH BREATHING EVEN AND UNLABORED, NO SOB NOTED. NO SIGNS OF ACUTE DISTRESS NOTED. NO COMPLAINTS OF PAIN OR DISCOMFORT. IV LOCATED ON R AC # 20 RUNNING D51/2 NS @ 70 ML/ HR. SAFETY PRECAUTION IN PLACE WITH BED IN LOWEST POSITION, CALL LIGHT WITHIN REACH, BREAKS ON, AND SIDE RAILS UP X2. WILL CONTINUE TO MONITOR.
[2019-12-19 20:00] VITALS: BP 93/70
[2019-12-19] MEDS: DIVALPROEX SODIUM 500 MG TABLET.DR PO SCH (21:07)
[2019-12-19] MEDS: risperiDONE 0.25 MG TABLET PO SCH (21:07)
[2019-12-20 02:59] LABS: APPEARANCE,URINE SL CLOUDY (CLEAR); BILIRUBIN,URINE NEGATIVE (NEGATIVE); BLOOD, URINE NEGATIVE Ery/uL (NEGATIVE); COLOR,URINE YELLOW (YELLOW); KETONES,URINE NEGATIVE (NEGATIVE); LEUKOCYTE ESTERASE ,URINE MODERATE (NEGATIVE); NITRITE, URINE NEGATIVE (NEGATIVE); PROTEIN,URINE NEGATIVE (NEGATIVE); UGLUCOSE NEGATIVE (NEGATIVE); UROBILINOGEN,URINE 0.2 EU/dL (0.2)
[2019-12-20] MEDS: CARBIDOPA/LEVODOPA 25/100 MG 1 UDTAB PO SCH ×3 (06:25→17:09)
[2019-12-20] MEDS ORDERED: BUPIVACAINE 0.25% 75 MG/30 ML VIAL ONE (06:28)
[2019-12-20] MEDS ORDERED: ANESTHESIA TRAY IN PYXIS 1 EA TRAY MC ONE (06:28)
[2019-12-20] MEDS ORDERED: LIDOCAINE 1% INJ 50 ML MDV IJ ONE (06:28)
--- NOTE | 2019-12-20 06:45 | NUR ---
MS RN NOTES GOT A CALL FROM SURGEON DR. LEI TO ADMINISTER CARBIDOPA/ LEVODOPA BEFORE SURGERY. ORIGINALLY SCHEDULED AT 0900, BUT ADMINISTERED 0630. PATIENT WAS KEPT NPO.
--- NOTE | 2019-12-20 06:51 | NUR ---
MS RN NOTES PATIENT WENT DOWN TO SURGERY VIA GURNEY ACCOMPANIED BY OR STAFF.
[2019-12-20] MEDS ORDERED: LEVOTHYROXINE SODIUM 75 MCG TABLET PO SCH (07:30)
[2019-12-20] MEDS ORDERED: BACITRACIN ZINC OINT (15 GM) 15 GM TUBE TP ONE (07:40)
[2019-12-20] MEDS: AMLODIPINE BESYLATE 5 MG TABLET PO SCH (09:00)
[2019-12-20] MEDS: VALSARTAN 80 MG TABLET PO SCH (09:00)
[2019-12-20 09:10] VITALS: BP 118/84
--- NOTE | 2019-12-20 09:10 | NUR ---
m/s remote encoding operations supervisor: notes received pt from recovery room with dx: s/p Resection of left eyebrow/eyelid Basal cell carcinoma/ Reconstruction of left eyebrow defect with forehead fasciocutaneus advancement flap. Reconstruction of left eyelid with lateral fasciocutaneous rotation/advancement flap. Resection of right nose basal cell carcinoma. Reconstruction of right nose defect with nasal flap. steri strip intact with bacitracin ointment. vss. afebrile. no apparent distress noted. will continue to monitor.
[2019-12-20] MEDS: PANTOPRAZOLE 40 MG TABLET.DR PO SCH (09:33)
[2019-12-20] MEDS: LACTOBACILLUS RHAMNOSUS GG 1 EACH CAP.SPRINK PO SCH ×2 (09:33→17:09)
[2019-12-20] MEDS: MULTIVITAMINS,THERAGRAN 1 UDTAB TABLET PO SCH (09:33)
[2019-12-20] MEDS: BACLOFEN (10 MG) 10 MG TABLET PO SCH ×3 (09:33→17:09)
[2019-12-20] MEDS: DIVALPROEX SODIUM 500 MG TABLET.DR PO SCH ×2 (09:33→21:15)
[2019-12-20] MEDS: ANASTROZOLE 1 MG TABLET PO SCH (09:34)
[2019-12-20] MEDS: Z GUARD REMEDY 2 OZ OINT TP SCH (10:27)
[2019-12-20] MEDS: GABAPENTIN 400 MG CAPSULE PO SCH ×3 (10:28→17:09)
[2019-12-20] MEDS ORDERED: BACITRACIN ZINC OINT (15 GM) 15 GM TUBE TP PRN (12:00)
--- NOTE | 2019-12-20 12:00 | NUR ---
m/s manager telecom: plastic surgeon consult seen and examined by yoli menjivar) at this time.
[2019-12-20] MEDS: BACITRACIN ZINC OINT (15 GM) 15 GM TUBE TP SCH ×2 (13:07→17:10)
--- NOTE | 2019-12-20 14:00 | NUR ---
m/s tobacco sieve operator: notes resting quietly in bed. no distress noted. will monitor.
[2019-12-20] MEDS ORDERED: NEOMY SULF/BACITRAC ZN/POLY 15 GM TUBE TP SCH (14:30)
[2019-12-20 16:00] VITALS: BP 108/56
--- NOTE | 2019-12-20 16:00 | NUR ---
m/s finger waver: notes assisted to the bathroom, noted pt to have rectal prolapse, able to put it back in with lubricant. kept comfortable. no distress noted. will monitor.
[2019-12-20] MEDS ORDERED: PRIM1POW MC (17:05)
[2019-12-20] MEDS ORDERED: HYDR-500 PO (17:05)
[2019-12-20] MEDS ORDERED: ZOLP5TAB8 PO (17:05)
[2019-12-20] MEDS ORDERED: ASPI-605 PO (17:05)
[2019-12-20] MEDS ORDERED: [UNRECOGNIZED DRUG - CODE] PO (17:05)
[2019-12-20] MEDS ORDERED: PSYL0.5245 PO (17:05)
[2019-12-20] MEDS ORDERED: FERR325T23 PO (17:05)
[2019-12-20] MEDS ORDERED: ONDA4TAB11 PO (17:05)
--- NOTE | 2019-12-20 18:30 | NUR ---
m/s fiberglass boat maker: notes in bed resting comfortable. no distress noted. needs attended. instructed to call for assistance. will monitor.
--- NOTE | 2019-12-20 19:10 | NUR ---
m/s surveyor geodetic: notes bedside report given to yesica (rn) for continuity of care.
--- NOTE | 2019-12-20 19:30 | NUR ---
MS RN NOTES MD VISIT SEEN BT DR LAINEZ WITH NEW ORDERS NOTED AND CARRIED OUT.
--- NOTE | 2019-12-20 19:45 | NUR ---
MS RN NOTES RECEIVED RESTING COMFORTABLY ON BED,ON SEMI FOWLERS POSITION,S/O RESECTION AND RECONSTRUCTION RIGHT NOSE AND LEFT EYEBROW CARCINOMA,OPEN TO AIR.NOTED BRUISING ON LEFT EYEBROW.IVF INFUSING WELL ON RIGHT AC SALINE LOCK VIA IV PUMP.CALL LIGHT IN REACH,NEEDS ANTICIPATED.
[2019-12-20 20:00] VITALS: BP 124/63
[2019-12-20] MEDS: risperiDONE 0.25 MG TABLET PO SCH (21:15)
[2019-12-20] MEDS: ENOXAPARIN SODIUM 40 MG/0.4 ML DISP.SYRIN SQ SCH (21:26)
[2019-12-20] MEDS: METHYL SALICYLATE/MENTHOL 28GM 28 GM TUBE TP PRN (21:29)
--- NOTE | 2019-12-21 06:52 | NUR ---
MS RN NOTES SLEPT WELL AT NIGHT,IVF INFUSE ON AND OFF,PATIENT ALWAYS BEND HER RIGHT ELBOW.TOPICAL OINTMENT EFFECTIVE FOR HER ARTHRITIS.NO COMPLAINTS OF PAIN.IN NO ACUTE DISTRESS.WILL ENDORSE TO DAY NURSE FOR [place].
[2019-12-21 08:00] VITALS: BP 142/73
--- NOTE | 2019-12-21 08:00 | NUR ---
MS RN OPENING NOTES RECEIVED PT IN BED. AWAKE ALERT AND ORIENTED X4. NO CARDIAC OR RESPIRATORY DISTRESS NOTED. NO COMPLAINTS OF PAIN OR DISCOMFORT. IV SITE INTACT AND PATENT NOTED ON R AC IV FLUIDS RUNNING D5 1/2 NS RUNNING AT 70CC/HR.. PT S/S RCSECTION OF BASAL CELL CARCINOMA ON R NOSE AND L EYE BROW. NO S/S OF INFECTION NOTED TO SITE. NO BLEEDING NOTED. ASSISTED PT WITH AM ADLC CARE.
[2019-12-21] MEDS: ANASTROZOLE 1 MG TABLET PO SCH (08:30)
[2019-12-21] MEDS: VALSARTAN 80 MG TABLET PO SCH (08:30)
[2019-12-21] MEDS: LACTOBACILLUS RHAMNOSUS GG 1 EACH CAP.SPRINK PO SCH ×2 (08:30→16:37)
[2019-12-21] MEDS: PANTOPRAZOLE 40 MG TABLET.DR PO SCH (08:30)
[2019-12-21] MEDS: CARBIDOPA/LEVODOPA 25/100 MG 1 UDTAB PO SCH ×3 (08:31→16:37)
[2019-12-21] MEDS: DIVALPROEX SODIUM 500 MG TABLET.DR PO SCH ×2 (08:31→20:51)
[2019-12-21] MEDS: BACLOFEN (10 MG) 10 MG TABLET PO SCH ×3 (08:31→16:36)
[2019-12-21] MEDS: AMLODIPINE BESYLATE 5 MG TABLET PO SCH (08:31)
[2019-12-21] MEDS: GABAPENTIN 400 MG CAPSULE PO SCH ×3 (08:31→16:38)
[2019-12-21] MEDS: LEVOTHYROXINE SODIUM 100 MCG TABLET PO SCH (08:31)
[2019-12-21] MEDS: MULTIVITAMINS,THERAGRAN 1 UDTAB TABLET PO SCH (08:31)
[2019-12-21] MEDS: METHYL SALICYLATE/MENTHOL 28GM 28 GM TUBE TP PRN (08:34)
[2019-12-21] MEDS: BACITRACIN ZINC OINT (15 GM) 15 GM TUBE TP SCH ×3 (08:34→16:26)
[2019-12-21] MEDS: Z GUARD REMEDY 2 OZ OINT TP SCH (08:34)
[2019-12-21 08:42] LABS: BASOPHILS % (AUTO) 0.5 % (0.0-2.0); EOSINOPHILS % (AUTO) 1.2 % (0.0-6.0); HEMATOCRIT 35 % (33-45); HEMOGLOBIN 11.4 g/dL (11.5-14.8); LYMPHOCYTES # (AUTO) 2.7 /CMM (0.8-4.8); LYMPHOCYTES % (AUTO) 31.8 % (20.0-44.0); MEAN CORPUSCULAR HGB CONC 33 g/dl (31.0-36.0); MEAN CORPUSCULAR VOLUME 99 fL (82-100); MONOCYTES # (AUTO) 0.7 /CMM (0.1-1.30); MONOCYTES % (AUTO) 8.3 % (2.0-12.0); NEUTROPHILS # (AUTO) 4.8 /CMM (1.8-8.9); NEUTROPHILS % (AUTO) 58.2 % (43.0-81.0); PLATELET COUNT (AUTO) 169 /CMM (150-450); RED BLOOD CELL COUNT(AUTO) 3.51 MIL/uL (4.0-5.2); WHITE BLOOD COUNT (AUTO) 8.3 K/uL (4.3-11.0)
[2019-12-21 09:13] LABS: CALCIUM, SERUM 8.8 mg/dL (8.5-10.1); CREATININE 1.1 mg/dL (0.6-1.3)
[2019-12-21 16:00] VITALS: BP 143/73
--- NOTE | 2019-12-21 18:50 | NUR ---
MS RN CLOSING NOTES PT IN BED. ASLEEP BUT AROUSABLE. RESPONSIVE PATEL VERBAL AND TACTILE STIMULI. PNO CARDIAC OR RESPIRATORY DISTRESS NOTED. NO COMPLAINTS OF PAIN OR DISCOMFORT. IV SITE INTACT AND PATENT .. PT S/S RCSECTION OF BASAL CELL CARCINOMA ON R NOSE AND L EYE BROW. NO S/S OF INFECTION NOTED TO SITE. NO BLEEDING NOTED. ASSISTED PT WITH AM ADLC CARE.
--- NOTE | 2019-12-21 19:44 | NUR ---
RN NOTES PM SHIFT PATIENT ALERT AND ORIENTED X4, ON ROOM AIR, DENIES PAIN AT THIS TIME, NOTED SCABS ON RIGHT NOSE, LEFT EYE BROW DUE TO BASAL CELL CARCINOMA, CALM, COOPERATIVE, KEPT SAFE, CALL LIGHT WITHIN REACH.
[2019-12-21 20:00] VITALS: BP 132/77
[2019-12-21 20:30] VITALS: BP 132/77
[2019-12-21] MEDS: ENOXAPARIN SODIUM 40 MG/0.4 ML DISP.SYRIN SQ SCH (20:52)
[2019-12-21] MEDS: risperiDONE 0.25 MG TABLET PO SCH (21:35)
--- NOTE | 2019-12-22 06:35 | NUR ---
RN NOTES PM SHIFT PATIENT ALERT AND ORIENTED X3, ON ROOM AIR, DENIES PAIN, S/P RESECTION/RECONSTRUCTION OF RIGHT NOSE, LEFT EYEBROW SECONDARY TO BASAL CELL CARCINOMA WITH TREATMENT OF BACITRACIN OINTMENT BID, DAVID. ASSISTED TO TOILET USING FWW, NO AM LABS, DR. PERSAUD WILL FOLLOW UP PATIENT AT [facility].
--- NOTE | 2019-12-22 08:00 | NUR ---
MS RN OPENING NOTES RECEIVED PT IN BED. AWAKE ALERT AND ORIENTED X4. NO CARDIAC OR RESPIRATORY DISTRESS NOTED. NO COMPLAINTS OF PAIN OR DISCOMFORT. IV SITE INTACT AND PATENT FLUSHED WITH SALINE PT S/S RESECTION OF BASAL CELL CARCINOMA ON R NOSE AND L EYE BROW. NO S/S OF INFECTION NOTED TO SITE. NO BLEEDING NOTED. ASSISTED PT WITH AM ADL CARE
[2019-12-22] MEDS: LEVOTHYROXINE SODIUM 100 MCG TABLET PO SCH (08:08)
[2019-12-22] MEDS: PANTOPRAZOLE 40 MG TABLET.DR PO SCH (08:08)
[2019-12-22] MEDS: MULTIVITAMINS,THERAGRAN 1 UDTAB TABLET PO SCH (08:09)
[2019-12-22] MEDS: LACTOBACILLUS RHAMNOSUS GG 1 EACH CAP.SPRINK PO SCH ×2 (08:09→16:49)
[2019-12-22] MEDS: CARBIDOPA/LEVODOPA 25/100 MG 1 UDTAB PO SCH ×3 (08:09→16:49)
[2019-12-22] MEDS: AMLODIPINE BESYLATE 5 MG TABLET PO SCH (08:09)
[2019-12-22] MEDS: GABAPENTIN 400 MG CAPSULE PO SCH ×3 (08:09→16:49)
[2019-12-22] MEDS: DIVALPROEX SODIUM 500 MG TABLET.DR PO SCH (08:09)
[2019-12-22] MEDS: VALSARTAN 80 MG TABLET PO SCH (08:09)
[2019-12-22] MEDS: BACLOFEN (10 MG) 10 MG TABLET PO SCH ×3 (08:09→16:49)
[2019-12-22] MEDS: ANASTROZOLE 1 MG TABLET PO SCH (08:10)
[2019-12-22] MEDS: METHYL SALICYLATE/MENTHOL 28GM 28 GM TUBE TP PRN (08:12)
[2019-12-22] MEDS: Z GUARD REMEDY 2 OZ OINT TP SCH (08:12)
[2019-12-22] MEDS: BACITRACIN ZINC OINT (15 GM) 15 GM TUBE TP SCH ×3 (08:14→16:51)
[2019-12-22 10:06] VITALS: BP 159/78
[2019-12-22 16:34] VITALS: BP 120/64
--- NOTE | 2019-12-22 18:12 | NUR ---
MS/RN - Discharge Notes Patient states feeling better, A/O x 4, calm, cooperative, discharged to [facility] in stable condition. Reviewed discharge instructions with KOREY Saenz ([phone]) and she verbalized full understanding and all questions answered to her satisfaction. All belongings with patient and she deny any missing items. VSS, denies pain, afebrile, no apparent distress seen. No fall/injury during hospital stay. Discharge pictures taken. Heplock removed on the RAC with catheter tip intact, no redness, no swelling at the site. Discharge papers sent with ambulance crew. Endorsed accordingly.
== END 2019-12-22 18:23 | DRG 115 ==
LOC: ER 11:41 → MED 13:01
PROVIDERS: ADMIT Internal Medicine; ATTEND Internal Medicine
PROC: [UNRECOGNIZED PROCEDURE] (principal; 2019-12-20)
PROC: 0HX1XZZ Transfer Face Skin, External Approach (ICD-10-PCS; 2019-12-20)
PROC: 09T Ear, Nose, Sinus, Resection (ICD-10-PCS; 2019-12-20)
DX: C44.111 Basal cell carcinoma of skin of unspecified eyelid, including canthus (principal); I50.32 Chronic diastolic (congestive) heart failure; N39.0 Urinary tract infection, site not specified; E86.0 Dehydration; I11.0 Hypertensive heart disease with heart failure; C44.311 Basal cell carcinoma of skin of nose; E03.9 Hypothyroidism, unspecified; G20 Parkinson's disease; E78.5 Hyperlipidemia, unspecified; J44.9 Chronic obstructive pulmonary disease, unspecified; C44.319 Basal cell carcinoma of skin of other parts of face; Z92.21 Personal history of antineoplastic chemotherapy; Z90.710 Acquired absence of both cervix and uterus; Z92.3 Personal history of irradiation; M19.90 Unspecified osteoarthritis, unspecified site; Z90.12 Acquired absence of left breast and nipple; Z87.891 Personal history of nicotine dependence; Z87.440 Personal history of urinary (tract) infections; Z86.73 Personal history of transient ischemic attack (TIA), and cerebral infarction without residual deficits; Z86.19 Personal history of other infectious and parasitic diseases; Z85.828 Personal history of other malignant neoplasm of skin; Z85.3 Personal history of malignant neoplasm of breast; Z83.3 Family history of diabetes mellitus; Z82.49 Family history of ischemic heart disease and other diseases of the circulatory system; Z80.0 Family history of malignant neoplasm of digestive organs; Z79.899 Other long term (current) drug therapy; Z79.890 Hormone replacement therapy; Z68.35 Body mass index [BMI] 35.0-35.9, adult; K76.0 Fatty (change of) liver, not elsewhere classified; K52.9 Noninfective gastroenteritis and colitis, unspecified; G62.9 Polyneuropathy, unspecified; D64.9 Anemia, unspecified; E66.9 Obesity, unspecified; F31.9 Bipolar disorder, unspecified; Z79.51 Long term (current) use of inhaled steroids; N32.81 Overactive bladder
CPT/HCPCS: 36415; 71045-TC; 80048-TC; 80076-TC; 81000-TC; 85025-TC; 85730-TC; 87081-TC; 87086-TC; 88305-TC; A6402; G0378; J1650; J3490